=== PATIENT | male | born 1970 | race Caucasian/White ===

== ENCOUNTER 2018-04-16 00:45 | Inpatient (IN) | payer OTHER ==
[~2018-04-16] VITALS: Ht 162.6 cm; Wt 145.2 kg
--- NOTE | ~2018-04-16 | 2DMMODE ---
[facility] [address] [place] [address] 2 D/M-MODE ECHOCARDIOGRAM Name: LETA IVORY Room #: 449-I [facility] IN [facility]#: [id number] Admission: 04/16/18 Attend Phys: Leta Do MD Discharge: Date of : 74 Date of Service: 04/17/18 1646 Report #: [id number] THIS REPORT FOR: //name// APPROVED REPORT Study performed: 04/17/2018 15:39:29 EXAM: Comprehensive 2D, Doppler, and color-flow Echocardiogram Patient Location: Bedside Room #: [facility] Status: routine BSA: 2.32 HR: 61 bpm BP: 130/79 mmHg Rhythm: NSR Other Information Study Quality: Fair Indications Dyspnea Hypertension/HDD Mental retardation 2D Dimensions IVSd: 10.66 (7-11mm) LVOT Diam: 22.58 (18-24mm) LVDd: 52.84 mm PWd: 11.07 (7-11mm) Ascending Ao: 32.51 (22-36mm) LVDs: 34.05 (25-40mm) Aortic Root: 29.79 mm Volumes Left Atrial Volume (Systole) Single Plane 4CH: 56.46 mL Single Plane 2CH: 66.50 mL LA ESV Index: 31.00 mL/m2 Aortic Valve AoV Peak Jaden.: 1.76 m/s AO Peak Gr.: 12.44 mmHg LVOT Max P.46 mmHg LVOT Max V: 1.27 m/s ASHER Vmax: 2.88 cm2 Mitral Valve E/A Ratio: 3.1 MV Decel. Time: 249.30 ms [facility] [place] [address] [place] [address] 2 D/M-MODE ECHOCARDIOGRAM Name: LETA IVORY Room #: 449-I [facility]#: [id number] Admission: 04/16/18 Attend Phys: Leta Do MD Discharge: Date of : 74 Date of Service: 04/17/18 1646 Report #: [id number] E Max Jaden.: 1.47 m/s MV A Jaden.: 0.48 m/s MV PHT: 72.30 ms IVRT: 87.66 ms Pulmonary Valve PV Peak Jaden.: 1.16 m/s PV Peak Gr.: 5.37 mmHg Pulmonary Vein P Vein S: 0.66 m/s P Vein A: 0.21 m/s P Vein D: 0.52 m/s P Vein A Dur.: 106.1 msec P Vein S/D Ratio: 1.27 Tricuspid Valve TR Peak Jaden.: 2.88 m/s TR Peak Gr.: 33.19 mmHg PA Pressure: 33.00 mmHg Left Ventricle The left ventricle is normal size. There is normal left ventricular wall thickness. The left ventricular systolic function is normal. The left ventricular ejection fraction is within the normal range. LVEF is 60-65%. The left ventricular diastolic function is normal. Right Ventricle The right ventricle is normal size. The right ventricular systolic function is normal. Atria The left atrium size is normal. The right atrium size is normal. Aortic Valve The aortic valve is normal in structure. No aortic regurgitation is present. There is no aortic valvular stenosis. Mitral Valve The mitral valve is normal in structure. Trace to mild mitral regurgitation. No evidence of mitral valve stenosis. Tricuspid Valve The tricuspid valve is normal in structure. There is trace to mild tricuspid regurgitation. Estimated PAP 33 plus the right atrial pressure. There is mild pulmonary hypertension. Pulmonic Valve [address] [address] 2 D/M-MODE ECHOCARDIOGRAM Name: LETA IVORY Room #: 449-I [facility]#: [id number] Admission: 04/16/18 Attend Phys: Leta Do MD Discharge: Date of : 74 Date of Service: 04/17/18 1646 Report #: [id number] The pulmonary valve is normal in structure. There is no pulmonic valvular regurgitation. Great Vessels The aortic root is normal in size. IVC is not well visualized. Pericardium There is no pericardial effusion. <Conclusion> Technically difficult study The left ventricle is normal size. The left ventricular systolic function is normal. The left ventricular diastolic function is normal. The right ventricle is normal size. The left atrium size is normal. The aortic valve is normal in structure. Trace to mild mitral regurgitation. There is trace to mild tricuspid regurgitation. Estimated PAP 33 plus the right atrial pressure. <ELECTRONICALLY SIGNED> By: Darrell Dukes MD 04/17/181645 45 45 Darrell Dukes MD /INF
--- NOTE | ~2018-04-16 | EKG ---
[address] [place] [address] ELECTROCARDIOGRAM REPORT Name: LETA IVROY Room #: 170-8 ADM IN ..#: [id number] Admission: 04/16/18 Attend Phys: Delmer Damon Discharge: Date of : 74 Report #: [id number] THIS REPORT FOR: //name// [facility] ED Test Date: 2018-04-16 Test Time: 01:00:17 Pat Name: LETA IVORY Department: Room: 170 Gender: M Rn Home Health: Sara PINEDA : 1970 Requested By: Lupillo Chandler Order Number: [id number] MD: Murray Rodriguez Measurements Intervals [place] Rate: 87 P: 57 NE: 142 QRS: 4 QRSD: 106 T: 31 QT: 373 QTc: 449 Interpretive Statements Sinus rhythm Abnormal R-wave progression, early transition No previous ECG available for comparison Electronically Signed On 04-16-2018 7:58:40 CDT by Murray Rodriguez [email or web address] <ELECTRONICALLY SIGNED> By: Murray Rodriguez MD, [facility] 04/16/18 0758 0100 0100 Murray Rodriguez MD, FACC /EPI
[~2018-04-16 00:45] MED LIST: MUCUS ER600 MG PO
[2018-04-16 00:46] VITALS: BP 123/49
[2018-04-16 01:21] LABS: ANION GAP 8 mmol/L (7-16); BUN 31 mg/dL (7-18); CALCIUM 8.1 mg/dL (8.5-10.1); CHLORIDE 101 mmol/L (98-107); CO2 30 mmol/L (21-32); CREATININE 1.3 mg/dL (0.7-1.3); GLUCOSE 114 mg/dL (74-106); POTASSIUM 3.9 mmol/L (3.5-5.1); SODIUM 139 mmol/L (136-145)
[2018-04-16 01:30] LABS: MAGNESIUM 1.6 mg/dL (1.8-2.4); SGOT 34 U/L (15-37); SGPT 41 U/L (30-65); TOTAL BILIRUBIN 0.7 mg/dL (<0.1-1.0); TOTAL PROTEIN 6.4 g/dL (6.4-8.2); TROPONIN-I <0.06 ng/mL (<0.06)
[2018-04-16 01:54] LABS: ABSOLUTE NEUTROPHILS 10.3 thou/uL (1.4-8.2); BASOPHILS 0.2 % (0.0-2.0); HEMATOCRIT 33.4 % (42.0-52.0); HEMOGLOBIN 11.1 gm/dL (14.0-18.0); MCH 28.7 pg (26.0-34.0); MCHC 33.1 g/dL (28.0-37.0); MCV 86.7 fL (80.0-100.0); MONOCYTES 4.4 % (1.0-8.0); PLATELET COUNT 132 thou/uL (150-400); POLYS 88.4 % (36.0-66.0); RBC 3.85 mil/uL (4.50-6.00); RDW 13.9 % (10.5-14.5); WBC 11.7 thou/uL (4.0-11.0)
[2018-04-16] MEDS ORDERED: BENZTROPINE MESY2 MG PO (02:06)
[2018-04-16] MEDS ORDERED: BUMETANIDE0.25 MG/1 PO (02:06)
[2018-04-16] MEDS ORDERED: DEPAKOTE ER500 M1 PO (02:07)
[2018-04-16] MEDS ORDERED: OMEPRAZOLE 20 M20 M1 PO (02:10)
[2018-04-16] MEDS ORDERED: LOPRESSOR50 PO (02:10)
[2018-04-16] MEDS ORDERED: PROZAC20 MG PO (02:10)
[2018-04-16] MEDS ORDERED: ZANTAC 150MG T150 MG PO (02:10)
[2018-04-16] MEDS ORDERED: LIPITOR 20 MG T20 M1 PO (02:11)
[2018-04-16] MEDS ORDERED: NEURONTIN100 MG PO (02:11)
[2018-04-16] MEDS ORDERED: BUSPIRONE HCL10 MG PO (02:11)
[2018-04-16] MEDS ORDERED: KLONOPIN1 MG PO (02:11)
[2018-04-16] MEDS ORDERED: REMERON15 MG PO (02:12)
[2018-04-16] MEDS ORDERED: DEPAKOTE ER500 MG PO (02:12)
[2018-04-16] MEDS ORDERED: NASONEX17 GM NASAL (02:13)
[2018-04-16] MEDS ORDERED: TYLENOL325 MG PO (02:14)
[2018-04-16] MEDS ORDERED: FLEXERIL PO (02:14)
[2018-04-16] MEDS ORDERED: DICYCLOMINE HCL20 MG PO (02:15)
[2018-04-16] MEDS ORDERED: IBUPROFEN 800800 M1 PO (02:15)
[2018-04-16] MEDS ORDERED: LEVALBUTER1.25 MG/0. INH (02:16)
[2018-04-16] MEDS ORDERED: MILK OF MA2400 MG/10 PO (02:17)
[2018-04-16] MEDS ORDERED: ZOFRAN ODT4 MG DISSOLVE (02:17)
[2018-04-16] MEDS ORDERED: MIRALAX17 GM PO (02:18)
[2018-04-16] MEDS ORDERED: PEPTO-BISMOL262 M1 PO (02:18)
[2018-04-16] MEDS ORDERED: SILTUSSIN100 MG/5 M PO (02:19)
[2018-04-16 04:24] LABS: URINE BILIRUBIN NEGATIVE (Negative); URINE BLOOD NEGATIVE (Negative); URINE CLARITY CLEAR; URINE COLOR YELLOW; URINE GLUCOSE-RANDOM* NEGATIVE (Negative); URINE KETONES NEGATIVE (Negative); URINE LEUKOCYTES-REFLEX NEGATIVE (Negative); URINE NITRITE-REFLEX NEGATIVE (Negative); URINE PROTEIN (DIPSTICK) NEGATIVE (Negative); URINE SPECIFIC GRAVITY <= 1.005 (1.005-1.035)
[2018-04-16 08:00] VITALS: BP 131/57
[2018-04-16 11:46] VITALS: BP 121/77
[2018-04-16 17:00] VITALS: BP 131/85
[2018-04-16 21:53] VITALS: BP 140/83
[2018-04-16 22:32] VITALS: BP 125/73
[2018-04-17 03:49] VITALS: BP 160/97
[2018-04-17 06:06] LABS: CALCIUM 8.7 mg/dL (8.5-10.1); CREATININE 0.9 mg/dL (0.7-1.3); MAGNESIUM 2.3 mg/dL (1.8-2.4); POTASSIUM 4.6 mmol/L (3.5-5.1)
[2018-04-17 06:21] VITALS: BP 130/79
[2018-04-17 16:00] VITALS: BP 125/73
[2018-04-17 19:19] VITALS: BP 128/68
[2018-04-18 03:53] VITALS: BP 130/81
[2018-04-18 06:14] LABS: CALCIUM 8.7 mg/dL (8.5-10.1); POTASSIUM 4.1 mmol/L (3.5-5.1)
[2018-04-18 07:12] VITALS: BP 148/76
[2018-04-18 14:42] VITALS: BP 110/70
[2018-04-18 19:13] VITALS: BP 123/65
[2018-04-19 03:14] VITALS: BP 109/68
[2018-04-19 06:38] LABS: HEMATOCRIT 37.5 % (42.0-52.0); HEMOGLOBIN 12.1 gm/dL (14.0-18.0); MCH 28.3 pg (26.0-34.0); MCHC 32.3 g/dL (28.0-37.0); MCV 87.7 fL (80.0-100.0); RBC 4.27 mil/uL (4.50-6.00); RDW 14.6 % (10.5-14.5); WBC 7.7 thou/uL (4.0-11.0)
[2018-04-19 06:52] LABS: CALCIUM 9.4 mg/dL (8.5-10.1); MAGNESIUM 2.1 mg/dL (1.8-2.4); POTASSIUM 3.5 mmol/L (3.5-5.1)
[2018-04-19 07:11] VITALS: BP 113/61
[2018-04-19 12:30] VITALS: BP 115/51
[2018-04-19 13:05] VITALS: BP 124/61
[2018-04-19] MEDS ORDERED: CLONAZEPAM 1 MG1 M1 PO (13:20)
== END 2018-04-19 19:12 | DRG 871 ==
LOC: ER 00:45 → 4W 04:02 → EROBS 04:02 → 4W 22:10
PROVIDERS: Emergency Medicine; Hospitalist; Internal Medicine; Nurse Practitioner Acute Care
PROC: 5A09357 Assistance with Respiratory Ventilation, Less than 24 Consecutive Hours, Continuous Positive Airway Pressure (ICD-10-PCS; principal; 2018-04-17)
PROC: 5A09357 Assistance with Respiratory Ventilation, Less than 24 Consecutive Hours, Continuous Positive Airway Pressure (ICD-10-PCS; 2018-04-18)
PROC: 5A09357 Assistance with Respiratory Ventilation, Less than 24 Consecutive Hours, Continuous Positive Airway Pressure (ICD-10-PCS; 2018-04-19)
DX: A41.9 Sepsis, unspecified organism (principal); J96.20 Acute and chronic respiratory failure, unspecified whether with hypoxia or hypercapnia; I50.33 Acute on chronic diastolic (congestive) heart failure; L03.115 Cellulitis of right lower limb; J45.901 Unspecified asthma with (acute) exacerbation; I11.0 Hypertensive heart disease with heart failure; F17.220 Nicotine dependence, chewing tobacco, uncomplicated; D64.9 Anemia, unspecified; E83.42 Hypomagnesemia; J06.9 Acute upper respiratory infection, unspecified; G89.29 Other chronic pain; F32.9 Major depressive disorder, single episode, unspecified; K21.9 Gastro-esophageal reflux disease without esophagitis; K59.00 Constipation, unspecified; E78.00 Pure hypercholesterolemia, unspecified; G47.33 Obstructive sleep apnea (adult) (pediatric); F91.9 Conduct disorder, unspecified; Z28.21 Immunization not carried out because of patient refusal; Z88.0 Allergy status to penicillin; Z88.8 Allergy status to other drugs, medicaments and biological substances; Z86.711 Personal history of pulmonary embolism
CPT/HCPCS: 10045

== ENCOUNTER 2018-06-05 18:15 | Inpatient (IN) | payer OTHER ==
[~2018-06-05] VITALS: Ht 152.4 cm; Wt 141.1 kg
--- NOTE | ~2018-06-05 | EKG ---
[place] [address] [facility] [place] [place] [address] ELECTROCARDIOGRAM REPORT Name: SEAN IVORY Room #: 431-P ADM IN M.R.#: [id number] Admission: 06/05/18 Attend Phys: Solis Do MD Discharge: Date of : 74 Report #: [id number] THIS REPORT FOR: //name// [facility] ED Test Date: 2018-06-05 Test Time: 18:34:40 Pat Name: SEAN IVORY Department: Room: 431 Gender: M Medical Examiner: BILLY : 1970 Requested By: Lynn Martinez Order Number: [id number] MD: Murray Rodriguez Measurements Intervals [place] Rate: 67 P: 52 CA: 156 QRS: 3 QRSD: 102 T: 24 QT: 441 QTc: 466 Interpretive Statements Sinus rhythm Abnormal R-wave progression, early transition Baseline wander in lead(s) V6 Compared to ECG 04/16/2018 01:00:17 No significant changes Electronically Signed On 06-06-2018 8:33:08 HORSES OR MULES TEAMSTER by Murray Rodriguez [email or web address] <ELECTRONICALLY SIGNED> By: Murray Rodriguez MD, [facility] 06/06/18 0833 1834 33 Murray Rodriguez MD, [facility] /EPI
[~2018-06-05 18:15] MED LIST changes: +BENZTROPINE MESY2 MG PO; +BUMETANIDE0.25 MG/1 PO; +BUSPIRONE HCL10 MG PO; +CLONAZEPAM 1 MG1 M1 PO; +DEPAKOTE ER500 M1 PO; +DEPAKOTE ER500 MG PO; +DICYCLOMINE HCL20 MG PO; +FLEXERIL PO; +IBUPROFEN 800800 M1 PO; +KLONOPIN1 MG PO; +LEVALBUTER1.25 MG/0. INH; +LIPITOR 20 MG T20 M1 PO; +LOPRESSOR50 PO; +MILK OF MA2400 MG/10 PO; +MIRALAX17 GM PO; +NASONEX17 GM NASAL; +NEURONTIN100 MG PO; +OMEPRAZOLE 20 M20 M1 PO; +PEPTO-BISMOL262 M1 PO; +PROZAC20 MG PO; +REMERON15 MG PO; +SILTUSSIN100 MG/5 M PO; +TYLENOL325 MG PO; +ZANTAC 150MG T150 MG PO; +ZOFRAN ODT4 MG DISSOLVE
[2018-06-05 18:17] VITALS: BP 121/57
[2018-06-05 18:56] LABS: ABSOLUTE NEUTROPHILS 3.2 thou/uL (1.4-8.2); BASOPHILS 0.5 % (0.0-2.0); EOSINOPHILS 1.9 % (0.0-3.0); HEMATOCRIT 37.3 % (42.0-52.0); HEMOGLOBIN 12.5 gm/dL (14.0-18.0); LYMPHOCYTES 29.7 % (24.0-44.0); MCH 28.9 pg (26.0-34.0); MCHC 33.5 g/dL (28.0-37.0); MCV 86.3 fL (80.0-100.0); MONOCYTES 8.3 % (1.0-8.0); PLATELET COUNT 164 thou/uL (150-400); POLYS 59.6 % (36.0-66.0); RBC 4.32 mil/uL (4.50-6.00); RDW 15.6 % (10.5-14.5); WBC 5.4 thou/uL (4.0-11.0)
[2018-06-05 19:04] LABS: ANION GAP 4 mmol/L (7-16); BUN 11 mg/dL (7-18); CALCIUM 8.4 mg/dL (8.5-10.1); CHLORIDE 103 mmol/L (98-107); CO2 32 mmol/L (21-32); CREATININE 0.8 mg/dL (0.7-1.3); GLUCOSE 96 mg/dL (74-106); POTASSIUM 4.2 mmol/L (3.5-5.1); SODIUM 139 mmol/L (136-145)
[2018-06-05 19:12] LABS: ALBUMIN 3.3 g/dL (3.4-5.0); MAGNESIUM 1.8 mg/dL (1.8-2.4); SGOT 29 U/L (15-37); SGPT 28 U/L (30-65); TOTAL BILIRUBIN 0.4 mg/dL (<0.1-1.0); TOTAL PROTEIN 6.8 g/dL (6.4-8.2); TROPONIN-I <0.06 ng/mL (<0.06)
[2018-06-05 21:12] VITALS: BP 119/70
[2018-06-05 21:47] VITALS: BP 123/74
[2018-06-05 22:30] VITALS: BP 135/74
[2018-06-06 04:46] VITALS: BP 124/66
[2018-06-06 06:31] LABS: CALCIUM 8.7 mg/dL (8.5-10.1); CREATININE 0.9 mg/dL (0.7-1.3); POTASSIUM 4.2 mmol/L (3.5-5.1)
[2018-06-06 11:23] VITALS: BP 124/66
[2018-06-06 17:00] VITALS: BP 142/49
[2018-06-06 20:22] VITALS: BP 129/53
[2018-06-07 07:14] VITALS: BP 130/80
[2018-06-07] MEDS ORDERED: PREDNISONE 20 M20 MG PO (09:28)
== END 2018-06-07 18:50 | DRG 202 ==
LOC: ER 18:15 → 4E 20:52 → EROBS 20:52 → 4E 21:45
PROVIDERS: Nurse Practitioner Family; Physician Assistant
PROC: 5A09357 Assistance with Respiratory Ventilation, Less than 24 Consecutive Hours, Continuous Positive Airway Pressure (ICD-10-PCS; principal; 2018-06-06)
PROC: 5A09357 Assistance with Respiratory Ventilation, Less than 24 Consecutive Hours, Continuous Positive Airway Pressure (ICD-10-PCS; 2018-06-07)
DX: J45.902 Unspecified asthma with status asthmaticus (principal); I50.32 Chronic diastolic (congestive) heart failure; G89.29 Other chronic pain; F32.9 Major depressive disorder, single episode, unspecified; K59.00 Constipation, unspecified; E78.00 Pure hypercholesterolemia, unspecified; F17.220 Nicotine dependence, chewing tobacco, uncomplicated; G47.33 Obstructive sleep apnea (adult) (pediatric); I11.0 Hypertensive heart disease with heart failure; K21.9 Gastro-esophageal reflux disease without esophagitis; F39 Unspecified mood [affective] disorder; E78.5 Hyperlipidemia, unspecified; Z86.711 Personal history of pulmonary embolism; Z88.0 Allergy status to penicillin; Z88.8 Allergy status to other drugs, medicaments and biological substances
CPT/HCPCS: 10084

== ENCOUNTER → 2018-06-28 | Outpatient (CLI) | payer OTHER ==
[~2018-06-28] MED LIST changes: -BUMETANIDE0.25 MG/1 PO; +BUMEX2 MG PO; +PEPTO-BISM262 MG/15 PO; -PEPTO-BISMOL262 M1 PO; +PREDNISONE 20 M20 MG PO
--- NOTE | 2018-06-30 18:23 | SLE ---
[facility] [place] [address] [address] POLYSOMNOGRAPHY STUDY Name: SEAN IVORY Room #: REG DAHIANA Ordoñez.#: [id number] Admission: 06/28/18 Attend Phys: Yeison Kirby MD Discharge: Date of : 74 Report #: [id number] THIS REPORT FOR: //name// CC: Yeison Oshea MD FAM unknown DATE OF SERVICE: 06/29/2018 ATTENDING PHYSICIAN: Reddy Oshea MD The patient is 48-year-old who weighs 306 pounds with a BMI of 47.9. The patient underwent a split night study at [facility]. During the night of study, the patient spent 451 minutes in bed and slept for 430 minutes with an excellent sleep efficiency of 91%. Sleep latency was 2 minutes, which was short with a prolonged REM latency of 396 minutes. Overall, sleep architecture showed increased stage 1 and stage 2 sleep, absent N3 sleep and reduced REM sleep, which was 9% of the total sleep time. During the initial diagnostic portion of the study, the patient spent 176 minutes in bed and slept for 161 minutes. During that time, the patient had 5 obstructive apneas, no mixed or central apneas. There were 140 hypopneas. The patient's apnea-hypopnea index during the diagnostic portion was 54 per hour. The patient did not have REM sleep during the diagnostic portion. The patient's supine AHI was also 54 per hour. EKG monitoring revealed an average heart rate of 65 beats per minute with a maximum of 73 beats per minute. Occasional PVCs were observed. No sustained arrhythmias observed. No PLMS observed. Nocturnal oximetry study during the diagnostic portion revealed an average oxygen saturation of 83% with a lowest of 69%. 125 minutes were spent on oxygen saturation less than 89% and another 34 minutes with oxygen saturation of less than 79%. The patient met the criteria for CPAP initiation. The patient was started on CPAP at 9 cm water and titrated up to 20 cm water. At CPAP pressures from 13-19, the patient did very well with AHI of 0 per hour; however, no REM sleep was observed. At the final CPAP pressure of 20 cm water, the patient had supine as well as REM sleep. The patient slept for 61 minutes. The patient had 37 minutes of REM sleep. The patient's AHI was significantly improved and was reduced to 6.8 per hour. The patient's oxygen saturations improved to around 90s with a lowest desaturation of 84%. [facility] [address] [place] [address] POLYSOMNOGRAPHY STUDY Name: SEAN IVORY Room #: REG ESALydia Coombs#: [id number] Admission: 06/28/18 Attend Phys: Yeison Kirby MD Discharge: Date of : 74 Report #: [id number] IMPRESSION: 1. Severe sleep apnea-hypopnea syndrome at an AHI of 54 per hour. 2. Nocturnal hypoxia secondary to combination of obstructive sleep apnea and suspected hypoventilation. Resolved on final CPAP pressure. 3. No clinically significant periodic limb movements of sleep. RECOMMENDATIONS: 1. CPAP at 20 cm water significantly improved the patient's sleep apnea with AHI down to 6.8 per hour. I would recommend that the patient should have a download information in 30 days to make sure AHI remains less than 5 per hour and if it continues to remain high, then the patient could be switched to BiPAP at 20/16 with review of download in 30 days. 2. Weight loss is strongly advised. 3. Avoid BOAT RIDE OPERATOR depressants. 4. Caution regarding driving until symptoms of sleep apnea resolve with the above recommendations. <ELECTRONICALLY SIGNED> By: Yeison Kirby MD 06/30/18 1823 1717 1750 Yeison Kirby MD /nt
== END ==
LOC: SLEEPLAB 11:39
DX: G47.33 Obstructive sleep apnea (adult) (pediatric) (principal); R09.02 Hypoxemia

== ENCOUNTER 2018-07-02 11:00 | Inpatient (IN) | payer OTHER ==
[2018-07-02] VITALS (7 sets, daily range): BP systolic 101–143; BP diastolic 62–71
[~2018-07-02] VITALS: Ht 162.6 cm; Wt 140.4 kg
[2018-07-02 11:23] LABS: ABSOLUTE NEUTROPHILS 4.8 thou/uL (1.4-8.2); BASOPHILS 0.3 % (0.0-2.0); HEMATOCRIT 40.1 % (42.0-52.0); HEMOGLOBIN 13.3 gm/dL (14.0-18.0); LYMPHOCYTES 5.9 % (24.0-44.0); MCH 28.7 pg (26.0-34.0); MCHC 33.2 g/dL (28.0-37.0); MCV 86.5 fL (80.0-100.0); MONOCYTES 8.5 % (1.0-8.0); PLATELET COUNT 173 thou/uL (150-400); POLYS 85.3 % (36.0-66.0); RBC 4.64 mil/uL (4.50-6.00); RDW 14.7 % (10.5-14.5); WBC 5.7 thou/uL (4.0-11.0)
[2018-07-02 11:27] LABS: BE(vivo) 0.1 mmol/L (-2 to +3); HCO3 26.7 mmol/L (22.0-26.0); PCO2 51.4 mmHg (35.0-45.0); PO2 46.9 mmHg (80.0-100.0); pH 7.334 (7.360-7.450); sO2 79.5 % (92.0-98.0)
[2018-07-02 11:32] LABS: ANION GAP 7 mmol/L (7-16); BUN 18 mg/dL (7-18); CALCIUM 8.7 mg/dL (8.5-10.1); CHLORIDE 102 mmol/L (98-107); CO2 34 mmol/L (21-32); CREATININE 1.1 mg/dL (0.7-1.3); GLUCOSE 142 mg/dL (74-106); POTASSIUM 4.3 mmol/L (3.5-5.1); SODIUM 143 mmol/L (136-145)
[2018-07-02 11:40] LABS: ALBUMIN 3.6 g/dL (3.4-5.0); SGOT 18 U/L (15-37); SGPT 38 U/L (30-65); TOTAL BILIRUBIN 0.5 mg/dL (<0.1-1.0); TOTAL PROTEIN 7.2 g/dL (6.4-8.2); TROPONIN-I <0.06 ng/mL (<0.06)
[2018-07-02 12:03] LABS: URINE COLOR YELLOW
[2018-07-02 12:04] LABS: URINE CLARITY CLEAR; URINE GLUCOSE-RANDOM* NEGATIVE (Negative); URINE KETONES NEGATIVE (Negative); URINE PROTEIN (DIPSTICK) NEGATIVE (Negative)
[2018-07-02 12:07] LABS: ICTOTEST (BILI CONFIRMATORY) Negative (Negative); URINE BILIRUBIN NEGATIVE (Negative); URINE BLOOD NEGATIVE (Negative); URINE LEUKOCYTES-REFLEX NEGATIVE (Negative); URINE NITRITE-REFLEX NEGATIVE (Negative); URINE UROBILINOGEN 0.2 E.U./dl (0.2-1.0)
--- NOTE | 2018-07-02 13:47 | NUR ---
report received from rn in er. pt received to rm 358 via stretcher. pt resting quietly and comfortably in bed, bed alarm on, call light w/ in pt's hand. pt request tv on. pt on nasal bipap, wondering when he can have it off. awaiting orders from dr. ames.
--- NOTE | 2018-07-02 13:59 | EKG ---
[address] [address] ELECTROCARDIOGRAM REPORT Name: CACHORROLETA Room #: 358-P ADM IN M.R.#: [id number] Admission: 07/02/18 Attend Phys: Leta Do MD Discharge: Date of : 74 Report #: [id number] THIS REPORT FOR: //name// [facility] ED Test Date: 2018-07-02 Test Time: 11:08:54 Pat Name: LETA IVORY Department: Room: 358 Gender: M Invisible Braces Orthodontist: PATRICK : 1970 Requested By: Delmar Mccoy Order Number: [id number] MD: Ari Canas Measurements Intervals [place] Rate: 98 P: 44 [place]: 142 QRS: -3 QRSD: 98 T: 24 QT: 351 QTc: 449 Interpretive Statements Sinus rhythm Borderline T abnormalities, anterior leads Compared to ECG 06/05/2018 18:34:40 T-wave abnormality now present Electronically Signed On 07-02-2018 13:59:31 AIR TRAFFIC INSTRUCTOR by Ari Canas [email or web address] <ELECTRONICALLY SIGNED> By: Ari Canas MD 07/02/18 1359 1108 1108 Ari Canas MD /ANNMARIE
--- NOTE | 2018-07-03 02:19 | NUR ---
SLEPT ON BIPAP. AROUSABLE AND FOLLOWS SIMPLE INSTRUCTIONS. SWALLOWS PILLS AND LIQUID WITHOUT PROBLEMS. WORKING ON GOALS AND PLAN OF CARE FOR NOC. REINFORCE NEED FOR BIPAP. TOLERATING WELL. PROGRESSING SLOWLY TOWARDS DISCHARGE GOALS. CONTINUE TO ASSES CLOESLY.
[2018-07-03 03:39] VITALS: BP 134/74
[2018-07-03 04:18] LABS: CALCIUM 8.6 mg/dL (8.5-10.1); CREATININE 0.8 mg/dL (0.7-1.3)
[2018-07-03 05:50] LABS: HEMATOCRIT 38.6 % (42.0-52.0); HEMOGLOBIN 12.8 gm/dL (14.0-18.0); MCH 28.7 pg (26.0-34.0); MCHC 33.1 g/dL (28.0-37.0); MCV 86.9 fL (80.0-100.0); RBC 4.44 mil/uL (4.50-6.00); RDW 14.9 % (10.5-14.5)
--- NOTE | 2018-07-03 06:57 | NUR ---
ASSUMED CARE @ 0115 07/03/18, REPORT FROM ELBA MORRELL. PT ALERT TO SELF ONLY, PT HAS HAX OF MR. PT ON BIPAP SATS IN THE 90'S. PT IN SB WHILE AT SLEEP, SR WHEN AWAKE. PT HAD AN UNEVENTFUL NIGHT. PLAN OF CARE CONT TO MONITOR.
[2018-07-03 07:52] VITALS: BP 121/71
--- NOTE | 2018-07-03 10:29 | NUR ---
INITIAL ASSESSMENT: KVNG reviewed chart and spoke with nursing. Pt was admitted from [facility] due to pneumonia. Pt tested positive for influenza B and is in droplet isolation. Pt is on tamiflu. Pt noted to be a ware of the state in [place], [place]. KVNG placed call to [facility] PA office and spoke with Fabby Ward to notify of pt's admission and provide clinical update. Verbal consent given for pt to be treated. Plan is for pt to return to [facility] when medically stable. Pt with hx of MR. Discharge orders/summary will need to be faxed to the PA office when available. planner to fax clinical info to [facility] for review. KVNG updated pt's nurse to contact the PA office for any consents needed. KVNG is following to assist as needed with discharge planning. [facility] PUBLIC TOY CONSULTANT-- [place]: Curtis Adkins Lead Painter: Christian Perez
--- NOTE | 2018-07-03 11:22 | NUR ---
JOSHUA SENT INITIAL REFERRAL TO [facility]. PATIENT WON'T DC FOR SEVERAL DAYS, CURRENTLY IN ISOLATION FOR FLU.
[2018-07-03 16:06] VITALS: BP 134/88
--- NOTE | 2018-07-03 16:37 | NUR ---
Assumed care of Pt at 0700. Pt AOx1-2. On bipap overnight. Now on supplemental oxygen, mildly labored breathing. Diminished lung sounds. Sitting in chair throughout day. Calling out frequently for various needs. Using bedside commode. IV fluids infusing per order. Tamiflu given. Sinus on telemetry, delvin at times. Good progress toward poc goals.
[2018-07-03 19:26] VITALS: BP 147/84
--- NOTE | 2018-07-04 04:10 | NUR ---
RESTING QUIETLY TONIGHT. DENIES PAIN. CONTINUES TO CALL APPROP FOR ASSIST. PROGRESSING TOWARD DISCHARGE GOALS. CAREPLAN REVIEWED.
[2018-07-04 05:01] VITALS: BP 135/75
[2018-07-04 07:35] VITALS: BP 118/70
[2018-07-04] MEDS ORDERED: LEVAQUIN 500 M500 M2 PO (08:55)
[2018-07-04] MEDS ORDERED: OSELB75 PO (08:55)
[2018-07-04] MEDS ORDERED: FLOMAX0.4 MG PO (09:01)
--- NOTE | 2018-07-04 11:18 | HC ---
[facility] [place] [address] CONSULTATION Name: LETA IVORY Room #: 358-P [facility] IN .R.#: [id number] Admission: 07/02/18 Attend Phys: Leta Do MD Discharge: Date of : 74 Report #: [id number] THIS REPORT FOR: //name// CC: Leta Oshea TYPE OF REPORT: Pulmonary consultation. REFERRAL PHYSICIAN: Leta Do M.D. REASON FOR REFERRAL: Dyspnea and influenza A. HISTORY OF PRESENT ILLNESS: The patient is a 48-year-old white male who was brought to Emergency Room with progressive dyspnea. He was subsequently found to have influenza A. A Pulmonary consultation was requested. The patient resides in a long term. He has mental retardation along with history of asthma and past history of pulmonary embolus along with sleep apnea. Because of mental status, he is not a good historian. He appears comfortable, in no distress at present. PAST MEDICAL HISTORY: As mentioned above; history of asthma, severity unknown; sleep apnea; history of pulmonary embolus; intellectual disability; mood disorder; major depressive disorder; chronic respiratory failure; hypertension; gastroesophageal reflux disease; history of asthma; history of chronic lower extremity edema; chronic sinusitis and hypercholesterolemia. ALLERGIES: To ALPRAZOLAM and PENICILLIN, reactions not specified. HOME MEDICATIONS: List reviewed, is in the MAR. FAMILY HISTORY: Noncontributory. SOCIAL HISTORY: Resides at a long term. He apparently chews tobacco. Denies any alcohol use. PHYSICAL EXAMINATION: GENERAL: He is awake and alert, in no apparent distress. VITAL SIGNS: Temperature is 99 degrees Fahrenheit, pulse is 70, respiratory rate is 22, blood pressure 130/74 mmHg and saturation 96%. HEENT: Normocephalic and atraumatic. NECK: Supple, without any lymphadenopathy or thyromegaly. CHEST: Breath sounds are distant without any obvious rales or wheezes. CARDIOVASCULAR: Normal S1 and S2. No murmurs or gallop. There is no JVD. There is no carotid bruit. Pulses are 2+/4+ bilaterally. ABDOMEN: Soft and nontender. No organomegaly or masses felt. [address] [address] CONSULTATION Name: LETA IVORY Room #: 358-P ADM IN M.R.#: [id number] Admission: 07/02/18 Attend Phys: Leta Do MD Discharge: Date of : 74 Report #: [id number] GENITOURINARY: Deferred. RECTAL: Deferred. EXTREMITIES: Trace edema. No cyanosis or clubbing. RADIOLOGICAL DATA: Chest x-ray shows mild bibasilar infiltrates. LABORATORY DATA: Influenza swab was positive for influenza B. Electrolytes are normal. Liver enzymes unremarkable. WBC 5700. No evidence of bandemia. No evidence of eosinophilia. Arterial blood gas revealed pH 7.33, pCO2 of 51 and pO2 46 on room air. IMPRESSION: 1. Influenza B, pneumonia. 2. Khzyf-cs-smwsceq hypercapnic hypoxic respiratory failure due to above along with probable obesity hypoventilation syndrome. 3. Obstructive sleep apnea, probable obesity hypoventilation syndrome. The patient does not appear to be on a continuous positive airway pressure or bilevel positive airway pressure. 4. Asthma without obvious exacerbation. 5. Chronic diastolic heart failure, possible component of acute with lower extremity edema. 6. History of intellectual disability with a mood disorder, depression. 7. Remote history of pulmonary embolus. 8. Chronic pain. 9. Hypertension. 10. Gastroesophageal reflux disease. 11. Chronic lower extremity edema. 12. Chronic sinusitis. 13. History of allergies. RECOMMENDATIONS: Agree with current treatment plans including bronchodilators, corticosteroids. A gentle diuresis is recommended. He is currently on Tamiflu along with antibiotics. DVT and GI prophylaxis recommended. Thank you for this consultation. <ELECTRONICALLY SIGNED> By: Yusef Lowery MD 07/04/18 1118 1600 51 Yusef Lowery MD /nt
--- NOTE | 2018-07-04 15:16 | NUR ---
DISCHARGE NOTE: KVNG reviewed chart and spoke with nursing and attending physician. Pt is medically stable for discharge back to [facility] today. Awaiting call back from [facility] to determine if they are able to accept pt back today. Pt positive for Influenza B and has been on tamiflu since yesterday. KVNG left voice message for Deputy Ruba at [facility] Public Marketing Forecaster's Office. Will fax finalized discharge orders/summary when available. KVNG is following to assist as needed.
--- NOTE | 2018-07-04 15:42 | NUR ---
DISCHARGE ORDERS RECEIVED. PATIENT DISCHARGING TO [facility] UNIT. CHART COPIED PER FASHION EDITOR. ORDERS FAXED TO DESMOND MCKEON FOR [facility]. ORDERS VERIFIED RECEIVED. [facility] UNABLE TO TRANSPORT. NO MANAGER ENVIRONMENTAL SERVICES ON SITE TODAY. [facility] TO TRANSPORT PATIENT. [phone] HOURS. DIRECTOR NOTIFIED AND APPROVED. UNIT RN NOTIFIED AND CONTACT NUMBER PROVIDED FOR REPORT. DISCHARGE ORDERS AND DISCHARGE SUMMARY FAXED TO PATIENTS PUBLIC GENERAL ACCOUNTING CLERK IN [facility] AND NOTIFIED PER UNIT KVNG.
--- NOTE | 2018-07-04 15:56 | NUR ---
Assumed care of PT at 0700. Pt alert and oriented x2 in no acute distress. mild resp distress. maintains spo2 > 95% on 5L NC. IV abx infusing per order. anticipate d/c back to [facility] later this evening. will cont to monitor. good progress toward poc goals.
== END 2018-07-04 18:28 | DRG 871 ==
LOC: ER 11:00 → EROBS 11:52 → 3W 11:52 → EROBS 13:16 → 3W 13:31
PROVIDERS: Physician Assistant; ADMIT Hospitalist
PROC: 5A09357 Assistance with Respiratory Ventilation, Less than 24 Consecutive Hours, Continuous Positive Airway Pressure (ICD-10-PCS; principal; 2018-07-02)
PROC: 5A09357 Assistance with Respiratory Ventilation, Less than 24 Consecutive Hours, Continuous Positive Airway Pressure (ICD-10-PCS; 2018-07-03)
DX: A41.9 Sepsis, unspecified organism (principal); J10.08 Influenza due to other identified influenza virus with other specified pneumonia; J96.21 Acute and chronic respiratory failure with hypoxia; J12.89 Other viral pneumonia; J96.22 Acute and chronic respiratory failure with hypercapnia; I50.32 Chronic diastolic (congestive) heart failure; Z68.43 Body mass index [BMI] 50.0-59.9, adult; G89.29 Other chronic pain; F32.9 Major depressive disorder, single episode, unspecified; K21.9 Gastro-esophageal reflux disease without esophagitis; I11.0 Hypertensive heart disease with heart failure; F17.220 Nicotine dependence, chewing tobacco, uncomplicated; G47.33 Obstructive sleep apnea (adult) (pediatric); J32.9 Chronic sinusitis, unspecified; F39 Unspecified mood [affective] disorder; F09 Unspecified mental disorder due to known physiological condition; E66.01 Morbid (severe) obesity due to excess calories; K59.00 Constipation, unspecified; J45.909 Unspecified asthma, uncomplicated; E78.00 Pure hypercholesterolemia, unspecified; Z88.0 Allergy status to penicillin; Z88.8 Allergy status to other drugs, medicaments and biological substances; Z86.711 Personal history of pulmonary embolism
CPT/HCPCS: 10879

== ENCOUNTER 2019-05-30 17:31 | Inpatient (IN) | payer OTHER ==
[~2019-05-30] VITALS: Ht 165.1 cm; Wt 145.4 kg
[~2019-05-30 17:31] MED LIST changes: +FLOMAX0.4 MG PO; +LEVAQUIN 500 M500 M2 PO; +OSELB75 PO
[2019-05-30 17:32] VITALS: BP 124/74
[2019-05-30 18:03] LABS: ABSOLUTE NEUTROPHILS 9.5 thou/uL (1.4-8.2); BASOPHILS 0.3 % (0.0-2.0); EOSINOPHILS 0.2 % (0.0-3.0); HEMATOCRIT 39.6 % (42.0-52.0); HEMOGLOBIN 12.8 gm/dL (14.0-18.0); LYMPHOCYTES 8.2 % (24.0-44.0); MCH 28.2 pg (26.0-34.0); MCHC 32.4 g/dL (28.0-37.0); MCV 87.1 fL (80.0-100.0); MONOCYTES 8.4 % (1.0-8.0); PLATELET COUNT 159 thou/uL (150-400); POLYS 82.9 % (36.0-66.0); RBC 4.54 mil/uL (4.50-6.00); WBC 11.4 thou/uL (4.0-11.0)
[2019-05-30 18:08] LABS: ANION GAP 7 mmol/L (7-16); BUN 17 mg/dL (7-18); CALCIUM 9.4 mg/dL (8.5-10.1); CHLORIDE 100 mmol/L (98-107); CO2 32 mmol/L (21-32); GLUCOSE 112 mg/dL (74-106); SODIUM 139 mmol/L (136-145)
[2019-05-30 18:15] LABS: APTT 28.2 Seconds (24.5-32.8); PROTIME 10.6 Seconds (9.3-11.4)
[2019-05-30 18:18] LABS: ALBUMIN 3.3 g/dL (3.4-5.0); MAGNESIUM 1.9 mg/dL (1.8-2.4); SGOT 39 U/L (15-37); SGPT 47 U/L (30-65); TOTAL BILIRUBIN 0.5 mg/dL (<0.1-1.0); TROPONIN-I <0.06 ng/mL (<0.06)
[2019-05-30 18:21] LABS: BE(vivo) 6.4 mmol/L (-2 to +3); HCO3 32.4 mmol/L (22.0-26.0); PO2 51.2 mmHg (80.0-100.0); pH 7.412 (7.360-7.450); sO2 86.1 % (92.0-98.0)
--- NOTE | 2019-05-30 18:23 | NUR ---
CALLED GUARDIAN TWICE, UNABLE TO GET HIM ON THE PHONE
[2019-05-30 18:35] LABS: URINE BILIRUBIN NEGATIVE (Negative); URINE BLOOD NEGATIVE (Negative); URINE CLARITY CLEAR; URINE COLOR YELLOW; URINE GLUCOSE-RANDOM* NEGATIVE (Negative); URINE KETONES NEGATIVE (Negative); URINE LEUKOCYTES-REFLEX NEGATIVE (Negative); URINE NITRITE-REFLEX NEGATIVE (Negative); URINE PROTEIN (DIPSTICK) NEGATIVE (Negative); URINE SPECIFIC GRAVITY 1.015 (1.005-1.035)
[2019-05-30] MEDS ORDERED: INVEGA SUS234 MG/1.5 IM (19:03)
[2019-05-30 20:35] LABS: BE(vivo) 3.9 mmol/L (-2 to +3); HCO3 30.1 mmol/L (22.0-26.0); PCO2 51.3 mmHg (35.0-45.0); PO2 75.4 mmHg (80.0-100.0); pH 7.386 (7.360-7.450); sO2 94.8 % (92.0-98.0)
[2019-05-30 21:07] VITALS: BP 132/69
[2019-05-30 21:15] VITALS: BP 123/72
[2019-05-30 21:37] VITALS: BP 120/60
[2019-05-30] MEDS ORDERED: BUMEX2 MG PO (23:25)
[2019-05-30] MEDS ORDERED: VITAMIN D32000 UNIT PO (23:27)
[2019-05-30] MEDS ORDERED: DEPAKOTE500 MG PO (23:29)
[2019-05-30] MEDS ORDERED: FAMOTIDINE 20 M20 MG PO (23:30)
[2019-05-30] MEDS ORDERED: LYRICA25 MG PO (23:30)
[2019-05-30] MEDS ORDERED: ULTRAM 50MG TAB50 MG PO (23:31)
[2019-05-30] MEDS ORDERED: TRANSDERM-SCOP1 EACH (23:33)
--- NOTE | 2019-05-31 00:02 | NUR ---
ADMIT FROM ED. PT RESIDENT AT [facility]. PT OX3. PT HAS MODERATE MR. PT REPORTS FEELING SOA FOR OVER A WEEK. ADMIT HCAP, SEPSIS, HYPOXIA. PT REPORTS CPAP AND O2 AT FACILITY. ED REPORTED THAT HE DOES NOT WEAR O2 AT FACILITY. PT PRESENTED IN ED WITH TEMP 100.9, PROVIDED TYLENOL AND ANTIBIOTICS IN ED. O2 PER NC 4L. RT CONTACTED RE CPAP HISTORY OF USE. MED HX OBESE, SLEEP AP, HTN, HIGH CHOLESTEROL, BACK PAIN, GERD, ASTHMA, BILAT PE HX, CONSTIPATION HX. SCHIZOPHRENIA, BIPOLAR, INTERMITTENT EXPLOSIVE DISORDER, REGISTERED OFFENDER. LUNGS WITH WHEEZES, DISTENDED ABD, BLE EDEMA, PT COOPERATIVE CALM, ASKED FOR COLORING AND DRAWING MATERIALS AND PROVIDED. PT REQUESTING SNACKS FREQUENTLY. LUNGS WITH WHEEZES, CONTINENT USING URINAL. DRY FEET NOTED AND LOTION PROVIDED. PT STATES HE PLANS ON LIVING WITH HIS SISTER WHO IS A NURSE AND IS GOING TO MOVE TO FROM [place].
[2019-05-31 00:06] VITALS: BP 139/86
[2019-05-31] MEDS ORDERED: INVEGA SUS234 MG/1.5 IM ×2 (00:14→00:27)
[2019-05-31 04:31] VITALS: BP 128/72
--- NOTE | 2019-05-31 05:33 | NUR ---
PT AWAKE ALL NIGHT FELL ASLEEP THIS AM. PT WOULD NOT AWAKEN TO TAKE AM MEDS.
[2019-05-31 08:03] VITALS: BP 134/78
[2019-05-31 09:27] LABS: HEMATOCRIT 38.3 % (42.0-52.0); HEMOGLOBIN 12.5 gm/dL (14.0-18.0); MCH 28.6 pg (26.0-34.0); MCHC 32.6 g/dL (28.0-37.0); MCV 87.6 fL (80.0-100.0); RBC 4.37 mil/uL (4.50-6.00); RDW 14.7 % (10.5-14.5); WBC 8.9 thou/uL (4.0-11.0)
--- NOTE | 2019-05-31 09:43 | EKG ---
[address] [place] [address] ELECTROCARDIOGRAM REPORT Name: LETA IVORY Room #: 363-P ADM IN M.R.#: [id number] Admission: 05/30/19 Attend Phys: Leta Do MD Discharge: Date of : 74 Report #: [id number] THIS REPORT FOR: //name// [facility] ED Test Date: 2019-05-30 Test Time: 17:37:09 Pat Name: LETA IVORY Department: Room: 363 Gender: M Sweat Band Sewer: R[place] : 1970 Requested By: Lupillo Chandler Order Number: [id number] MD: Murray Rodriguez Measurements Intervals [place] Rate: 85 P: 59 MT: 142 QRS: 21 QRSD: 104 T: 41 QT: 355 QTc: 422 Interpretive Statements Sinus rhythm RSR' in V1 or V2, right VCD Compared to ECG 07/02/2018 11:08:54 No significant change was found Electronically Signed On 05-31-2019 9:42:37 [employer] by Murray Rodriguez [email or web address] <ELECTRONICALLY SIGNED> By: Murray Rodriguez MD, [facility] 05/31/19 0942 1737 173 Murray Rodriguez MD, [facility] /EPI
[2019-05-31 09:45] LABS: CREATININE 0.8 mg/dL (0.7-1.3); MAGNESIUM 2.1 mg/dL (1.8-2.4); POTASSIUM 4.3 mmol/L (3.5-5.1)
[2019-05-31 09:52] LABS: CALCIUM 9.2 mg/dL (8.5-10.1)
[2019-05-31 15:23] VITALS: BP 133/72
--- NOTE | 2019-05-31 18:41 | NUR ---
PATIENT CONT ON ABT AND NO ADVERSE REACTION NOTED. HE DENIES PAIN. NEW IV PLACED TO LEFT FA THE ONE TO RIGHT AC WAS TOO SLOW. PLEASANT WITH CARE. WILL CONT WITH PLAN OF CARE.
[2019-05-31 20:33] VITALS: BP 126/61
--- NOTE | 2019-06-01 00:17 | NUR ---
PT SITTING UP IN LOUNGE CHAIR. O2 PER NC 2L, LUNGS WITH WHEEZES UPPER AND RLL CRACKLES. NO PRODUCTIVE COUGH. IV ANTIBIOTICS. CPAP AT HS, CONTINUOUS PULSE OX. PT ASKS FOR FREQUENT SNACKS. PT ALSO PROVIDED NEW COLORING AND WORD SEARCH PER HIS REQUEST. BLE EDEMA +2, ABD DISTENDED OBESE. BLUNTED AFFECT, PLEASANT CHEERFUL, SAYING THANK YOUS TOWARDS STAFF.
[2019-06-01 03:55] LABS: HEMATOCRIT 37.3 % (42.0-52.0); HEMOGLOBIN 12.2 gm/dL (14.0-18.0); MCH 28.8 pg (26.0-34.0); MCHC 32.6 g/dL (28.0-37.0); MCV 88.4 fL (80.0-100.0); RBC 4.22 mil/uL (4.50-6.00); WBC 6.9 thou/uL (4.0-11.0)
[2019-06-01 03:56] VITALS: BP 130/72
[2019-06-01 04:19] LABS: CALCIUM 8.5 mg/dL (8.5-10.1); CREATININE 0.8 mg/dL (0.7-1.3); MAGNESIUM 1.8 mg/dL (1.8-2.4)
[2019-06-01 04:21] LABS: POTASSIUM 3.2 mmol/L (3.5-5.1)
[2019-06-01 08:00] VITALS: BP 122/72
[2019-06-01 15:14] VITALS: BP 121/75
--- NOTE | 2019-06-01 16:45 | NUR ---
PATIENT ALERT TO SELF AND SITUATION, NO COMPLAINTS OF PAIN. UP IN CHAIR THROUGHT THE SHIFT, PATIENT WALKED IN ROOM WITH STANDBY ASSISTANCE. NO DISCOMFORT NOTED. PLAN OF CARE DISCUSSED WITH MOTHER. NO SIGNS OF ACUTE DITRESS NOTED AT THIS TIME. WILL CONTINUE TO MONITOR.
[2019-06-01 19:11] VITALS: BP 122/64
[2019-06-02 04:01] VITALS: BP 112/64
[2019-06-02 06:20] LABS: HEMATOCRIT 38.8 % (42.0-52.0); HEMOGLOBIN 12.5 gm/dL (14.0-18.0); MCH 28.4 pg (26.0-34.0); MCHC 32.3 g/dL (28.0-37.0); MCV 87.9 fL (80.0-100.0); RBC 4.42 mil/uL (4.50-6.00); RDW 15.5 % (10.5-14.5); WBC 4.9 thou/uL (4.0-11.0)
--- NOTE | 2019-06-02 06:25 | NUR ---
PATIENT IS ALERT TO SELF SITUATION. PATIENT IS PENDING DISCHARGE TODAY. PATIENT IS ON 1LNC PER COMFORT. PATIENT IS ON ROOM AIR AT HOME. PATINET IS ON BIPAP HS. PATIENT DENIES PAIN. PATIENT RESTING COMFORTABLY IN BED.
[2019-06-02 06:47] LABS: CALCIUM 9.2 mg/dL (8.5-10.1); CREATININE 0.8 mg/dL (0.7-1.3)
[2019-06-02 07:49] VITALS: BP 112/67
[2019-06-02 12:05] VITALS: BP 138/84
--- NOTE | 2019-06-02 12:05 | NUR ---
INITIAL ASSESSMENT/DISCHARGE NOTE: Received consult due to pt being admitted from a nursing facility. VKNG reviewed chart and spoke with attending physician. Pt was admitted from [facility] due to HCAP/sepsis. Pt is medically stable for discharge today. Pt with hx of MR/Depressive Disorder. Pt is a ware of the state. Pt's legal guardian is through [facility]. KVNG spoke with Deputy Curtis Adkins earlier today to notify of pt's discharg back to [facility]. Final discharge orders/summary will need to be faxed to the PA office when available. Pt to be transported via [facility] back to [facility]. Awaiting final discharge orders at this time. Chart copy ordered. Nursing to call report. KVNG is available to assist should needs arise. [facility] PUBLIC ADMINISTRATORS OFFICE--
[2019-06-02] MEDS ORDERED: MUCINEX600 MG PO ×2 (13:22→13:29)
[2019-06-02] MEDS ORDERED: LEVAQUIN 750 M750 MG PO ×2 (13:22→13:29)
[2019-06-02] MEDS ORDERED: IPRAT-ALBUT 0.5-3 ML INH ×2 (13:22→13:29)
--- NOTE | 2019-06-02 14:12 | NUR ---
PT DISCHARGING TODAY TO [facility] FAXED DC ORDERS/SUMMARY TO FACILITY SPOKE WITH ALEX HE RECEIVED ORDERS. THEY ARE NOT ABLE TO PROVIDE TRANSPORTATION SO TRANSPORT ARRANGED WITH [facility] FOR 1530 TODAY. NOTIFIED PA'S OFFICE OF DC AND FAXED DC ORDERS AND RECEIVED CONFIRMATION. UNIT NOTIFIED AND CHART COPY PER , RN TO CALL REPORT TO [phone].
--- NOTE | 2019-06-02 16:06 | NUR ---
PT BEING DISCHARGED TO [facility] TODAY.
[2019-06-02 16:50] VITALS: BP 120/65
[2019-06-04 23:08] LABS: ADENOVIRUS Negative (Negative); INFLUENZA A Positive (Negative); INFLUENZA B Negative (Negative); METAPNEUMOVIRUS Negative (Negative); PARAINFLUENZA 1 Negative (Negative); PARAINFLUENZA 2 Negative (Negative); PARAINFLUENZA 3 Negative (Negative); RHINOVIRUS Negative (Negative); RSV A Negative (Negative); RSV B Negative (Negative)
== END 2019-06-02 17:15 | DRG 871 ==
LOC: ER 17:31 → 3W 20:25 → EROBS 20:25 → 3W 21:22
PROVIDERS: Emergency Medicine; Internal Medicine; Nurse Practitioner Acute Care; ADMIT Hospitalist
PROC: 5A09357 Assistance with Respiratory Ventilation, Less than 24 Consecutive Hours, Continuous Positive Airway Pressure (ICD-10-PCS; principal; 2019-05-31)
PROC: 5A09357 Assistance with Respiratory Ventilation, Less than 24 Consecutive Hours, Continuous Positive Airway Pressure (ICD-10-PCS; 2019-06-01)
PROC: 5A09357 Assistance with Respiratory Ventilation, Less than 24 Consecutive Hours, Continuous Positive Airway Pressure (ICD-10-PCS; 2019-06-02)
DX: A41.9 Sepsis, unspecified organism (principal); J18.9 Pneumonia, unspecified organism; J96.21 Acute and chronic respiratory failure with hypoxia; I50.33 Acute on chronic diastolic (congestive) heart failure; Z68.43 Body mass index [BMI] 50.0-59.9, adult; E66.2 Morbid (severe) obesity with alveolar hypoventilation; M54.5 Low back pain; G89.29 Other chronic pain; J45.909 Unspecified asthma, uncomplicated; I11.0 Hypertensive heart disease with heart failure; F79 Unspecified intellectual disabilities; K21.9 Gastro-esophageal reflux disease without esophagitis; J32.9 Chronic sinusitis, unspecified; E78.00 Pure hypercholesterolemia, unspecified; G35 Multiple sclerosis; F91.9 Conduct disorder, unspecified; R60.0 Localized edema; F31.9 Bipolar disorder, unspecified; F20.9 Schizophrenia, unspecified; Z79.2 Long term (current) use of antibiotics; Z86.711 Personal history of pulmonary embolism; Z79.1 Long term (current) use of non-steroidal anti-inflammatories (NSAID); Z79.891 Long term (current) use of opiate analgesic; Z79.01 Long term (current) use of anticoagulants; Z79.899 Other long term (current) drug therapy; Z88.0 Allergy status to penicillin; Z88.8 Allergy status to other drugs, medicaments and biological substances
CPT/HCPCS: 10879

== ENCOUNTER 2019-06-27 10:05 | Inpatient (IN) | payer OTHER ==
[~2019-06-27] VITALS: Ht 175.3 cm; Wt 138.0 kg
[2019-06-27] VITALS (9 sets, daily range): BP systolic 109–152; BP diastolic 57–88
[~2019-06-27 10:05] MED LIST changes: +DEPAKOTE500 MG PO; +FAMOTIDINE 20 M20 MG PO; +INVEGA SUS234 MG/1.5 IM; +IPRAT-ALBUT 0.5-3 ML INH; +LEVAQUIN 750 M750 MG PO; -LOPRESSOR50 PO; +LYRICA25 MG PO; +METOPROLOL SUCC25 M1 PO; +MUCINEX600 MG PO; +TRANSDERM-SCOP1 EACH; +ULTRAM 50MG TAB50 MG PO; +VITAMIN D32000 UNIT PO
[2019-06-27] MEDS ORDERED: LEVAQUIN 500 M50012 PO (10:20)
--- NOTE | 2019-06-27 10:26 | NUR ---
[facility]
[2019-06-27 10:29] LABS: ABSOLUTE NEUTROPHILS 7.3 thou/uL (1.4-8.2); BASOPHILS 0.3 % (0.0-2.0); EOSINOPHILS 0.2 % (0.0-3.0); HEMOGLOBIN 12.5 gm/dL (14.0-18.0); LYMPHOCYTES 5.6 % (24.0-44.0); MCH 29.7 pg (26.0-34.0); MCHC 33.7 g/dL (28.0-37.0); MCV 88.2 fL (80.0-100.0); MONOCYTES 9.9 % (1.0-8.0); PLATELET COUNT 142 thou/uL (150-400); RBC 4.19 mil/uL (4.50-6.00); RDW 15.2 % (10.5-14.5); WBC 8.7 thou/uL (4.0-11.0)
[2019-06-27 10:37] LABS: ANION GAP 7 mmol/L (7-16); BUN 13 mg/dL (7-18); CHLORIDE 101 mmol/L (98-107); CO2 30 mmol/L (21-32); CREATININE 0.8 mg/dL (0.7-1.3); GLUCOSE 121 mg/dL (74-106); SODIUM 138 mmol/L (136-145)
[2019-06-27 10:39] LABS: APTT 28.6 Seconds (24.5-32.8); PROTIME 10.3 Seconds (9.3-11.4)
[2019-06-27 10:42] LABS: BE(vivo) 1.4 mmol/L (-2 to +3); HCO3 26.3 mmol/L (22.0-26.0); PCO2 42.4 mmHg (35.0-45.0); PO2 108.2 mmHg (80.0-100.0)
[2019-06-27 10:47] LABS: ALBUMIN 3.4 g/dL (3.4-5.0); MAGNESIUM 1.7 mg/dL (1.8-2.4); SGOT 28 U/L (15-37); SGPT 43 U/L (30-65); TOTAL BILIRUBIN 0.8 mg/dL (<0.1-1.0); TOTAL PROTEIN 7.1 g/dL (6.4-8.2); TROPONIN-I <0.06 ng/mL (<0.06)
[2019-06-27 14:28] LABS: TSH 1.303 uIU/mL (0.358-3.740)
--- NOTE | 2019-06-27 14:30 | EKG ---
[address] [address] ELECTROCARDIOGRAM REPORT Name: LETA IVORY Room #: 204-P ADM IN M.R.#: [id number] Admission: 06/27/19 Attend Phys: Kiran Kaye MD Discharge: Date of : 74 Report #: [id number] THIS REPORT FOR: //name// [facility] ED Test Date: 2019-06-27 Test Time: 10:20:11 Pat Name: LETA IVORY Department: Room: 204 Gender: M Piece Worker: kf : 1970 Requested By: Lupillo Chandler Order Number: [id number] MD: Ari Canas Measurements Intervals [place] Rate: 94 P: 44 [place]: 143 QRS: 0 QRSD: 107 T: 32 QT: 362 QTc: 453 Interpretive Statements Sinus rhythm Abnormal R-wave progression, early transition Baseline wander in lead(s) I,II,aVR,V3,V5,V6 Compared to ECG 05/30/2019 17:37:09 No significant changes Electronically Signed On 06-27-2019 14:30:13 DEVELOPMENT TEAM LEAD by Ari Canas [email or web address] <ELECTRONICALLY SIGNED> By: Ari Canas MD 06/27/19 1430 1020 1020 Ari Canas MD /EPI
[2019-06-27 16:50] LABS: BE(vivo) 1.5 mmol/L (-2 to +3); HCO3 29.8 mmol/L (22.0-26.0); PO2 69.3 mmHg (80.0-100.0); pH 7.279 (7.360-7.450); sO2 91.2 % (92.0-98.0)
--- NOTE | 2019-06-27 18:48 | NUR ---
pt came from ED, alert and oriented x2-3, assessed, call light in lap, pt demonstrated use. sitting up in bed, swallow eval done, nectar thick recommended. pt said,"I'm hungry." ate yogurt and sugar free pudding by himself, no signs or symptoms of aspiration, door left open to visualize pt. about 1630 pt's breathing appeared more labored, RT ran ABGs and put him on bipap. md brown, CHAIN MAKER HAND up to see pt around 1710, said was noticably different from earlier in ER, ordered meds and transfer to ICU, pt arousable and oriented to self, report called to Edna in ICU, pt transferred about 1830.
[2019-06-27 19:28] LABS: BE(vivo) 5.7 mmol/L (-2 to +3); HCO3 32.4 mmol/L (22.0-26.0); PCO2 56.4 mmHg (35.0-45.0); PO2 70.2 mmHg (80.0-100.0); pH 7.377 (7.360-7.450); sO2 93.4 % (92.0-98.0)
[2019-06-28] VITALS (24 sets, daily range): BP systolic 114–151; BP diastolic 52–82
[2019-06-28 05:52] LABS: CREATININE 0.6 mg/dL (0.7-1.3)
[2019-06-28 05:55] LABS: POTASSIUM 5.2 mmol/L (3.5-5.1)
--- NOTE | 2019-06-28 09:30 | NUR ---
DUE TO PATIENT BEING TRANSFERRED BACK TO ICU FROM CCU AND MEDICAL STATUS CHANGE, OT WILL NEED NEW EVALUATION ORDERS.
--- NOTE | 2019-06-28 10:14 | NUR ---
VASCULAR ACCESS CONSULTED FOR PICC LINE. PT UNABLE TO LAY FLAT. PT'S LABS,MESS,HISTORY,ORDER AND CONSENT REVIEWED. PERLA CEPHALIC WAS WIDELY PATENT WITH USG. 4FR DL POWER PICC TRIMMED TO 45CM INSERTED TO 0CM WITH BRISK BR. STAT CXR ORDERED. PT TOLERATED WELL.
--- NOTE | 2019-06-28 10:37 | NUR ---
CXR CONFIRMED PICC AT [facility], RELEASED FOR IMMEDIATE USE PER PROTOCOL.
--- NOTE | 2019-06-28 11:07 | NUR ---
ASSUMED CARE @ 0700 06/29/19, PT ASSESSMENTS AND VSS COMPLETE PER ICU PROTOCOL. MOTHER OF PT BRITTANY MCGHEE, CALLS TO CHECK ON PT STATUS, PT NEEDING A PICC AND SO I ASKED HER IF SHE HAS RIGHTS TO MAKE DECISIONS ON PT, SHE TELLS ME YES BUT SOUNDS UNSURE AND SO I CALLED [facility] MATERIALS INTERN TO VERIFY, I WAS TRANSFERRED TO THE DEPUTY UNATTENDED GROUND SENSOR SPECIALIST (BRITTNEY MCDANIEL) SHE TELLS ME THAT [facility] MATERIALS INTERN ARE THE ONLY PERSONNELS WHO MAKE DECISIONS ON THIS PT AND SO I GOT CONSENT FOR PICC FROM THE DEPUTY UNATTENDED GROUND SENSOR SPECIALIST, SON MORRELL VERIFIED WITH ME. PICC PLACED IN THE R UPPER ARM, NO COMPLICATIONS NOTED.
--- NOTE | 2019-06-28 16:27 | NUR ---
PT ORDER RECEIVED. UPON CHART REVIEW, Pt TRANSFERRED TO ICU. WILL AWAIT NEW PT ORDERS PRIOR TO INITIATING PT EVAULATION DUE TO Pt CHANGE IN MEDICAL STATUS.
[2019-06-29] VITALS (23 sets, daily range): BP systolic 120–160; BP diastolic 62–79
[2019-06-29 05:33] LABS: ABSOLUTE NEUTROPHILS 5.2 thou/uL (1.4-8.2); BASOPHILS 0.3 % (0.0-2.0); HEMATOCRIT 35.9 % (42.0-52.0); HEMOGLOBIN 11.6 gm/dL (14.0-18.0); LYMPHOCYTES 7.7 % (24.0-44.0); MCH 28.5 pg (26.0-34.0); MCHC 32.2 g/dL (28.0-37.0); MCV 88.3 fL (80.0-100.0); MONOCYTES 8.9 % (1.0-8.0); PLATELET COUNT 139 thou/uL (150-400); POLYS 83.1 % (36.0-66.0); RBC 4.07 mil/uL (4.50-6.00); RDW 14.5 % (10.5-14.5); WBC 6.3 thou/uL (4.0-11.0)
[2019-06-29 05:34] LABS: PCO2 52.7 mmHg (35.0-45.0); PO2 95.1 mmHg (80.0-100.0); pH 7.414 (7.360-7.450); sO2 97.2 % (92.0-98.0)
[2019-06-29 05:50] LABS: ALBUMIN 2.8 g/dL (3.4-5.0); CALCIUM 8.8 mg/dL (8.5-10.1); CREATININE 0.7 mg/dL (0.7-1.3); POTASSIUM 4.6 mmol/L (3.5-5.1); TOTAL BILIRUBIN 0.3 mg/dL (<0.1-1.0); TOTAL PROTEIN 6.4 g/dL (6.4-8.2)
--- NOTE | 2019-06-29 09:02 | NUR ---
ASSUMED CARE @ 0700 06/29/19, PT ASSESSMENTS AND VSS COMPLETE PER ICU PROTOCOL. @ 0821 PT HR 38, PT IN DEEP SLEEP, PT STIMULATED HR UP IN THE 50'S. DR MENDES INFORMED, NO NEW ORDERS AT THIS TIME.
[2019-06-30] VITALS (15 sets, daily range): BP systolic 126–152; BP diastolic 58–89
--- NOTE | 2019-06-30 08:50 | 2DMMODE ---
[facility] [address] [place] [address] 2 D/M-MODE ECHOCARDIOGRAM Name: LETA IVORY Room #: 237-P ADM IN M.R.#: [id number] Admission: 06/27/19 Attend Phys: Ofelia Mcintosh Discharge: Date of : 74 Report #: [id number] THIS REPORT FOR: //name// APPROVED REPORT Study performed: 06/28/2019 08:44:10 EXAM: Comprehensive 2D, Doppler, and color-flow Echocardiogram Patient Location: Bedside Room #: [facility] Status: on-call BSA: 2.58 HR: 65 bpm BP: 140/81 mmHg Rhythm: NSR Other Information Study Quality: Adequate Technically limited study due to patient on ventilator. Risk Factors: Cardiac Risk Factors: HTN, Hyperlipidemia, DM Indications COPD Dyspnea CAD Hypertension/HDD 2D Dimensions IVSd: 13.28 (7-11mm) LVOT Diam: 22.00 (18-24mm) LVDd: 49.31 mm PWd: 12.80 (7-11mm) Ascending Ao: 32.61 (22-36mm) LVDs: 32.05 (25-40mm) Aortic Root: 32.64 mm LV Single Plane 4CH: 56.00 % LV Single Plane 2CH: 61.54 % Biplane EF: 55.4 % Volumes Left Atrial Volume (Systole) Single Plane 4CH: 57.42 mL Single Plane 2CH: 67.18 mL LA ESV Index: 26.00 mL/m2 [facility] [address] [address] 2 D/M-MODE ECHOCARDIOGRAM Name: LETA IVROY Room #: 237-P [facility] IN .R.#: [id number] Admission: 06/27/19 Attend Phys: Ofelia Mcintosh Discharge: Date of : 74 Report #: [id number] Aortic Valve AoV Peak Jaden.: 1.55 m/s AO Peak Gr.: 9.62 mmHg LVOT Max P.72 mmHg LVOT Max V: 1.09 m/s ASHER Vmax: 2.68 cm2 Mitral Valve E/A Ratio: 2.4 MV Decel. Time: 220.02 ms MV E Max Jaden.: 1.39 m/s MV A Jaden.: 0.59 m/s MV PHT: 63.81 ms IVRT: 65.74 ms TDI E/Lateral E': 15.44 E/Medial E': 17.38 Medial E' Jaden.: 0.08 m/s Lateral E' Jaden.: 0.09 m/s Pulmonary Vein P Vein S: 0.93 m/s P Vein A: 0.25 m/s P Vein D: 0.97 m/s P Vein A Dur.: 141.9 msec P Vein S/D Ratio: 0.96 Tricuspid Valve TR Peak Jaden.: 2.96 m/s TR Peak Gr.: 35.13 mmHg Left Ventricle Left ventricle is at the upper limits of normal. There is normal LV segmental wall motion. Mild concentric left ventricular hypertrophy. Left ventricular systolic function is normal. The left ventricular ejection fraction is within the normal range. LVEF is 55-60%. The left ventricular diastolic function is normal. Right Ventricle The right ventricle is normal size. The right ventricular systolic function is normal. Atria The left atrium size is normal. Right atrium is dilated. Aortic Valve The aortic valve is normal in structure. No aortic regurgitation is present. There is no aortic valvular stenosis. [facility] [address] [place] [address] 2 D/M-MODE ECHOCARDIOGRAM Name: LETA IVORY Room #: 237-P [facility] IN ..#: [id number] Admission: 06/27/19 Attend Phys: Ofelia Mcintosh Discharge: Date of : 74 Report #: [id number] Mitral Valve The mitral valve is normal in structure. Trace to mild mitral regurgitation. No evidence of mitral valve stenosis. Tricuspid Valve The tricuspid valve is normal in structure. Moderate tricuspid regurgitation. Pulmonary artery pressure of 40-45 mmHg. Pulmonic Valve The pulmonary valve is normal in structure. Trace pulmonic regurgitation. Great Vessels The aortic root is normal in size. The ascending aorta is normal in size. IVC is not well visualized. Patient is on ventilator. Pericardium There is no pericardial effusion. <Conclusion> Left ventricular systolic function is normal. There is normal LV segmental wall motion. LVEF is 55-60%. The aortic valve is normal in structure. No aortic regurgitation or stenosis The mitral valve is normal in structure. Trace to mild mitral regurgitation. Moderate tricuspid regurgitation. Pulmonary artery pressure of 40-45 mmHg. There is no pericardial effusion. <ELECTRONICALLY SIGNED> By: Murray Rodriguez MD, FACC 06/30/1947 8 Murray Rodriguez MD, FACC /INF
--- NOTE | 2019-06-30 09:29 | NUR ---
Assess due to high BMI of 49.5=extreme class obesity. Admit from LTC with acute on chronic respiratory failure. Was recently here for pneumonia. Hx schizophrenia, bipolar, CHF, COPD and dysphagia. Has been held NPO over weekend. ICU rounds this am-goal is for ST eval and advance diet. Wts variable past year and upwards of ~35 lb. On lasix. Low nutrition risk at this time
--- NOTE | 2019-06-30 16:08 | NUR ---
PT ADMITTED RELATED TO SEPSIS, CAP, HYPOXIA. CM REVIEWED CHART AND SPOKE WITH CARE TEAM. CM MET WITH PT AT BEDSIDE THIS DAY. CM ROLE INTRODUCED. PT HAS GUARDIAN JAZMYN SAUL AT [facility]S OFFICE. CM CALLED AND SPOKE WITH. HIM, CM PROVIDED ADMITTING DIAGNOSIS. CLINICAL UPDATE TO BE FAXED TO HIS ATTENTION AT . HE CONFIRMED THAT PT RESIDES IN LTC AT [facility]. PT HAS A FWW, CPAP, AND NEBULIZER FOR USE AT THE FACILITY. CM TO ASK DC ELECTRIC MOTOR MECHANIC TP FAX CLINICAL UPDATE TO [facility] WELL. JAZMYN INDICATED THAT THEY ANICIPATE PT RETURNING TO [facility] ONE MEDICALLY STABLE. CM TO FOLLOW INDICATED WITH DC PLANNING.
--- NOTE | 2019-06-30 16:14 | NUR ---
PT REMAINS ON 5L NC TO MAINTAIN SATS. STATES HE WEARS BETWEEN 1-2 L NC AT HOME. VSS. SINUS RHYTHM ON THE MONITOR. SPEECH EVAL DONE THIS AM. DIET PER SPEECH. IV ABX. IV LASIX GIVEN WITH REMARKABLE URINE OUTPUT. CHANGED ACCUCHECK TO ACHS. BM X2. SAT UP IN CHAIR THROUGH OUT THE DAY. WORKED WITH PT/OT. UP WITH MINIMAL ASSIST. PROGRESSING TOWARDS GOALS. WILL TRANSFER OUT OF ICU TO 3W.
--- NOTE | 2019-06-30 18:37 | NUR ---
pt transfered to 3w. pt alert and oriented. vITAL SIGNS WITHIN NORMAL RANGE. ASSESSMENT COMPLETED. cALL LIGHT IN REACH. PT SITTING IN CHAIR, ALARM ON. PT DENIES ANY NEEDS.
[2019-07-01 04:22] VITALS: BP 137/75
--- NOTE | 2019-07-01 04:44 | NUR ---
PATIENT IS PROGRESSING SLOWLY IN HIS CARE PLAN. VITAL SIGNS STABLE WITH PATIENT IS HAVING NO COMPLAINTS OF PAIN OR NAUSEA. PATIENT IS MOSTLY ORIENTED AND ABLE TO CALL APPROPRIATELY FOR NEEDS. BREATHING STABLE EVIDENCED BY ASSESSMENT AND READINGS FROM CONTINUOUS SATURATION MONITOR. PATIENT WAS ABLE TO TOLERATE BIPAP WELL. UP MULTIPLE TIMES WITH ASSISTANCE INCIDENT FREE. CONTINUE PLAN OF CARE.
[2019-07-01 07:52] VITALS: BP 149/81
--- NOTE | 2019-07-01 10:41 | NUR ---
PT OFF THE FLOOR FOR SWALLOW EVALUATION.
[2019-07-01 11:51] VITALS: BP 144/81
--- NOTE | 2019-07-01 15:58 | NUR ---
SW reviewed chart and spoke with nursing and attending physician. Pt was transferred to 3 from ICU and is progressing towards goals for discharge. Discharge back to [facility] is anticipated for tomorrow. category planner to fax updates to [facility]. [facility] is following to assist as needed with discharge planning.
[2019-07-01 16:13] VITALS: BP 116/62
[2019-07-01 20:41] VITALS: BP 146/89
[2019-07-02 03:55] VITALS: BP 124/72
--- NOTE | 2019-07-02 05:11 | NUR ---
ASSUMED CARE OF PT AT 1900. A&Ox3, COOPERATIVE. ST ON TELE AT START OF SHIFT, UP 130'S. DAY RN STATED HE HAD BEEN TACHYCARDIC SINCE WORKING WITH PT DURING THE DAY. MONITORED, DECREASED WHEN PT WENT TO SLEEP, CURRENTLY IN MID- 70'S. 3L O2 VIA NC DURING DAY AND IS CURRENTLY ON BiPAP, TOLERATING FINE AND SLEEPING AT THIS TIME. MEDS GIVEN DOCUMENTED. PROGRESSING TOWARDS POC GOALS.
[2019-07-02 08:00] VITALS: BP 121/73
[2019-07-02 11:50] VITALS: BP 135/84
--- NOTE | 2019-07-02 14:42 | NUR ---
SW reviewed chart and spoke with nursing and attending physician. Pt is still requiring O2 and bipap support. Discharge back to [facility] is anticipated in 1-2 days. [facility] left voice message for pt's deputy case resolution specialist through [facility], Curtis Adkins, to provide update and notify of discharge timeframe. conference planner to fax clinical updates to [facility] for review. [facility] is following to assist as needed with discharge planning.
--- NOTE | 2019-07-02 15:13 | NUR ---
Assumed care approx. 0700 this AM. Pt on bipap this AM while sleeping then put on 3LNC at breakfast. Pt titrated to 2LNC with avg. O2 sat of 91-93%. Pt tachy to 130's when standing and walking but HR comes right back down when sitting. Pt has had adequate urine output with IV lasix admistration. When walking, pt steady on feet. Right upper arm PICC line found to be longterm taken out. IV team notified. PICC line dc'd by RN. New IV to be placed by IV team today. No acute changes. Pt progressing toward plan of care goals.
[2019-07-02 16:09] LABS: ADENOVIRUS Negative (Negative); INFLUENZA A Negative (Negative); INFLUENZA B Negative (Negative); METAPNEUMOVIRUS Negative (Negative); PARAINFLUENZA 1 Negative (Negative); PARAINFLUENZA 2 Negative (Negative); PARAINFLUENZA 3 Negative (Negative); RHINOVIRUS Negative (Negative); RSV A Negative (Negative); RSV B Negative (Negative)
[2019-07-02 17:01] VITALS: BP 130/83
[2019-07-02 19:30] VITALS: BP 127/77
[2019-07-03 03:45] VITALS: BP 119/71
--- NOTE | 2019-07-03 05:15 | NUR ---
ASSUMED CARE OF PT AT 1900. A&O, COOPERATIVE. HR ELEVATED AT START OF SHIFT AND REMAINED IN 120-130s UNTIL HE WENT TO SLEEP. DAY RN STATED HR HAD INCREASED DURING PT/OT AND HAD NOT DROPPED BACK DOWN. SPOKE TO ASSOCIATE DIRECTOR DATA & ANALYTICS, HR WAS HIGH 2 NIGHTS IN A ROW, INSTRUCTED TO CONTINUE MONITORING. HR DECREASED 30 MINUTES AFTER FALLING ASLEEP TO 90s. O2 TITRATED TO 2.5L NC W/ O2 SAT'S 92-94% AND BIPAP OVER NOC. LASIX GIVEN ORDERED. INCONTINENT 3X. PT STATED HE URINATED IN BED 1x BECAUSE THIS RN TOLD HIM TO KEEP HIS ARM STRAIGHT FOR THE IV TO WORK. CLEANED PRN. CURRENTLY RESTING. NO ACUTE DISTRESS. PROGRESSING TOWARDS POC GOALS.
[2019-07-03 07:57] VITALS: BP 126/81
[2019-07-03 11:25] LABS: POTASSIUM 2.7 mmol/L (3.5-5.1)
[2019-07-03 11:59] VITALS: BP 131/77
--- NOTE | 2019-07-03 15:48 | NUR ---
SW reviewed chart and spoke with nursing and attending physician. Pt is progressing towards goals for discharge. Discharge back to [facility] is anticipated for tomorrow. SW is following to assist as needed with discharge planning.
[2019-07-03 16:24] VITALS: BP 140/97
--- NOTE | 2019-07-03 18:04 | NUR ---
pt up in chair, denies any needs. pt progressing towards care. Call light in reach and chair alarm on. will continue to monitor.
[2019-07-03 19:56] VITALS: BP 131/81
[2019-07-04 04:20] LABS: CALCIUM 9.7 mg/dL (8.5-10.1); CREATININE 0.8 mg/dL (0.7-1.3)
[2019-07-04 06:23] VITALS: BP 118/77
--- NOTE | 2019-07-04 06:58 | NUR ---
PATIENT IS ALERT AND ORIENTED. WITH MR. PATIENT IS UP TIMES ONE. PATIENT LBM WAS THE 15TH. PATIENT HAS EXTERNAL CATH. PAITENT IS NSR ON TELE. WCM. PATIENT DENIES PAIN. PATIENT IS RESTING COMFORTABLY IN BED. WCM.
[2019-07-04 08:29] VITALS: BP 118/83
[2019-07-04 12:28] VITALS: BP 131/85
[2019-07-04] MEDS ORDERED: KLOR-CON 1010 MEQ PO (12:45)
[2019-07-04] MEDS ORDERED: HYDROCHLOROTHIA25 M1 PO (12:45)
[2019-07-04] MEDS ORDERED: PREDNISONE 20 M20 M1 PO (12:45)
--- NOTE | 2019-07-04 15:41 | NUR ---
PT DISCHARGING TODAY BACK TO [facility] FAXED DC ORDERS/SUMMARY TO FACILITY RECEIVED CONFIRMATION AND SPOKE WITH ALEX (DESMOND) THEY DO NOT SET UP TRANSPORT SO TRANSPORT ARRANGED THROUGH [facility] TRIP #[id number] THEY CAN PICK PT UP ANYTIME BETWEEN [phone] TODAY. PT TO NOTIFY FAMILY OF DC AND TIME OF TRANSPORT. UNIT NOTIFIED AND CHART COPY PER US. RN TO CALL REPORT TO [phone].
--- NOTE | 2019-07-04 17:04 | NUR ---
pt is A&OX3, PT is on o2 1L/MIN/NC at most of time, pt 's vs are stable , pt denies pain and SOB with activities, pt has meeting most of care plan goals , pt is going DC to [facility] about 1800-1830pm, RN has giving report . PT understands well.
[2019-07-04 18:12] VITALS: BP 101/67
[2019-07-04 20:00] VITALS: BP 108/68
--- NOTE | 2019-07-04 23:38 | NUR ---
[facility]: TICKET WAS SET OUT AT 1500 BY CM. SET TO BE PICKED UP BETWEEN 1800 -1830 [facility] CALLED AT 2045 TO DETERMINE ETA. # [id number] COMPUTER TYPESETTER HAD NOT BEEN ASIGNED. CALLED AT [address] NOTIFICATION WAS SENT OUT. WOULD CALL IN 30MIN WITH COMPUTER TYPESETTER INFO PER ESPERANZA. NO CALL RECIVED. CALLED 2330 NO COMPUTER TYPESETTER HAS BEEN ASIGNED AND NO COMPUTER TYPESETTER WITH SPECIFIC SPECIFICATONS THAT IS REQUIRED FOR THE PATIENT COULD BE FOUND AT THIS TIME DUE TO EVERYWHERE BEING CLOSED. DISCHARGE ORDER CANCELLED. PATIENT IS TAKING NIGHT MEDICATIONS AT THIS TIME. ALEXANDRA.
--- NOTE | 2019-07-05 02:38 | NUR ---
SPOKE WITH [facility] TRANSPORT SERVICE AT 2330; THEY STATED PT HAD NOT BEEN ASSIGNED TO A APN BECAUSE NO TRANSPORT WAS AVAILABLE CAPABLE OF TAKING A BARIATRIC W/C WITH O2. THEY STATED IT WAS UNLIKELY PT WOULD BE TRANSPORTED BEFORE MORNING BECAUSE OF A LACK OF OPEN TRANSPORT SERVICES OVERNIGHT. PT INFORMED HE WOULD STAY OVERNIGHT AND BE D/C-D HOME IN AM. SPOKE WITH NIK SHAH ABOUT CANCELLING THE DISCHARGE D/T NO TRANSPORTATION. PASSED HS MEDICATIONS. SPOKE WITH JAMES AT [facility] AT 0215. SHE STATED THE PT'S INSURANCE PLAN DIDN'T COVER OXYGEN DURING TRANSPORT, BUT THAT HE COULD BE TRANSPORTED BY CART [facility]IA [facility]. CRM TECHNICAL LEAD NOTIFIED, ADVISED TO CALL CASE MANAGEMENT FIRST THING IN THE AM TO VERIFY PT'S INSURANCE COVERAGE FOR TRANSPORT VIA [facility]. MEANWHILE, [facility] WILL CONTINUE TO TRY TO FIND TRANSPORT SERVICE FOR PT, WITH AN ATTEMPTED WAVE GUIDE ASSEMBLER TIME SCHEDULED FOR 0900; THEY WILL NOT NOTIFIY [facility] UNTIL VERIFIED BY HOSPITAL STAFF.
[2019-07-05 04:00] VITALS: BP 116/65
--- NOTE | 2019-07-05 05:10 | NUR ---
PT WAS TO DC ON THE EVENING OF 07/04. ISSUES WITH TRANSPORTATION STATING THEY CANNOT TAKE PT BEING ON 0XYGEN AND HIS INSURANCE NOT COVERING THE TRANSPORTATION FEE. THEY STATE HIS INSURANCE WILL ONLY COVER OXYGEN VIA TRANSPORT FROM [facility]. MANAGER RESPIRATORY CARE SW/CM WILL BE CALLED IN THE MORNING. I ASSUMED CARE FOR PT AT 0400. PT IS CURRENTLY RESTING IN CHAIR AND WITH BIPAP ON. HOURLY ROUNDING.
[2019-07-05 07:22] VITALS: BP 119/73
--- NOTE | 2019-07-05 10:26 | NUR ---
PATIENT TRANSPORTATION ARRANGED VIA [facility] [facility] [phone] HOURS. UNIT RN NOTIFIED AND WILL NOTIFY [facility].
--- NOTE | 2019-07-05 11:13 | NUR ---
DISCHARGE NOTE: SW reviewed chart and spoke with nursing. Pt did not discharge yesterday as anticipated. [facility] was unable to provide bariatric w/c with O2. Discharge cancelled. capacity planner coordinated pt's return to [facility] today. SW left voice message for [facility] Office to notify of pt's discharge. No additional SW needs identified at this time, but is available to assist should needs arise.
== END 2019-07-05 12:39 | DRG 177 ==
LOC: ER 10:05 → EROBS 11:15 → 2N 11:15 → ICU 11:15 → 2N 13:38 → ICU 18:43 → 3W 06-30 17:17
PROVIDERS: Emergency Medicine; Nurse Practitioner; Pediatrics; ADMIT Hospitalist
PROC: 02HV33Z Insertion of Infusion Device into Superior Vena Cava, Percutaneous Approach (ICD-10-PCS; principal; 2019-06-28)
PROC: B548ZZA Ultrasonography of Superior Vena Cava, Guidance (ICD-10-PCS; principal; 2019-06-28)
PROC: 5A09357 Assistance with Respiratory Ventilation, Less than 24 Consecutive Hours, Continuous Positive Airway Pressure (ICD-10-PCS; 2019-06-30)
PROC: 5A09357 Assistance with Respiratory Ventilation, Less than 24 Consecutive Hours, Continuous Positive Airway Pressure (ICD-10-PCS; 2019-07-02)
PROC: 5A09357 Assistance with Respiratory Ventilation, Less than 24 Consecutive Hours, Continuous Positive Airway Pressure (ICD-10-PCS; 2019-07-03)
PROC: 5A09357 Assistance with Respiratory Ventilation, Less than 24 Consecutive Hours, Continuous Positive Airway Pressure (ICD-10-PCS; 2019-07-04)
PROC: 5A09357 Assistance with Respiratory Ventilation, Less than 24 Consecutive Hours, Continuous Positive Airway Pressure (ICD-10-PCS; 2019-07-05)
DX: J69.0 Pneumonitis due to inhalation of food and vomit (principal); J96.21 Acute and chronic respiratory failure with hypoxia; J96.22 Acute and chronic respiratory failure with hypercapnia; E87.1 Hypo-osmolality and hyponatremia; J44.9 Chronic obstructive pulmonary disease, unspecified; I10 Essential (primary) hypertension; G89.29 Other chronic pain; E78.5 Hyperlipidemia, unspecified; F32.9 Major depressive disorder, single episode, unspecified; K21.9 Gastro-esophageal reflux disease without esophagitis; K59.00 Constipation, unspecified; E78.00 Pure hypercholesterolemia, unspecified; I34.0 Nonrheumatic mitral (valve) insufficiency; F17.220 Nicotine dependence, chewing tobacco, uncomplicated; G47.33 Obstructive sleep apnea (adult) (pediatric); D64.9 Anemia, unspecified; E87.5 Hyperkalemia; R73.9 Hyperglycemia, unspecified; F91.9 Conduct disorder, unspecified; R00.1 Bradycardia, unspecified; J06.9 Acute upper respiratory infection, unspecified; R00.0 Tachycardia, unspecified; Z86.711 Personal history of pulmonary embolism; Z88.0 Allergy status to penicillin; Z88.8 Allergy status to other drugs, medicaments and biological substances
CPT/HCPCS: 10078; 10779; 10879; 27000

== ENCOUNTER 2020-01-15 01:51 | Inpatient (IN) | payer OTHER ==
[~2020-01-15] VITALS: Ht 170.2 cm; Wt 150.7 kg
[2020-01-15] VITALS (7 sets, daily range): BP systolic 98–143; BP diastolic 49–75
[~2020-01-15 01:51] MED LIST changes: +HYDROCHLOROTHIA25 M1 PO; +KLOR-CON 1010 MEQ PO; +LEVAQUIN 500 M50012 PO; +PREDNISONE 20 M20 M1 PO
[2020-01-15 02:44] LABS: BE(vivo) 6.8 mmol/L (-2 to +3); HCO3 33.7 mmol/L (22.0-26.0); PCO2 58.5 mmHg (35.0-45.0); PO2 72.3 mmHg (80.0-100.0); pH 7.378 (7.360-7.450); sO2 93.9 % (92.0-98.0)
[2020-01-15 02:53] LABS: HEMATOCRIT 36.4 % (42.0-52.0); HEMOGLOBIN 11.9 gm/dL (14.0-18.0); MCH 28.4 pg (26.0-34.0); MCHC 32.7 g/dL (28.0-37.0); MCV 86.8 fL (80.0-100.0); PLATELET COUNT 168 thou/uL (150-400); RBC 4.19 mil/uL (4.50-6.00); RDW 15.5 % (10.5-14.5); WBC 8.7 thou/uL (4.0-11.0)
[2020-01-15 03:00] LABS: CALCIUM 8.2 mg/dL (8.5-10.1); CREATININE 0.8 mg/dL (0.7-1.3); POTASSIUM 3.6 mmol/L (3.5-5.1)
[2020-01-15] MEDS ORDERED: INVEGA INJECTION (03:12)
[2020-01-15] MEDS ORDERED: TRIPLE ANTIBIO1 EAC1 TOP (03:13)
[2020-01-15] MEDS ORDERED: SEROQUEL 25 MG25 MG PO (03:20)
[2020-01-15] MEDS ORDERED: HYDROCHLOROTHIA25 M2 PO (03:21)
[2020-01-15] MEDS ORDERED: SINGULAIR 10 MG10 M1 PO (03:23)
[2020-01-15] MEDS ORDERED: FLUOXETINE PO (03:25)
[2020-01-15 04:30] LABS: BE(vivo) 6.9 mmol/L (-2 to +3); HCO3 33.7 mmol/L (22.0-26.0); PO2 130.6 mmHg (80.0-100.0); pH 7.382 (7.360-7.450); sO2 98.5 % (92.0-98.0)
[2020-01-15 04:56] LABS: ABSOLUTE NEUTROPHILS 6.3 thou/uL (1.4-8.2)
[2020-01-15 04:57] LABS: LARGE PLATELETS FEW; PLATELET ESTIMATE NORMAL
[2020-01-15 17:53] LABS: BE(vivo) 1.8 mmol/L (-2 to +3); HCO3 26.1 mmol/L (22.0-26.0); PCO2 39.8 mmHg (35.0-45.0); PO2 83.8 mmHg (80.0-100.0); pH 7.435 (7.360-7.450); sO2 96.6 % (92.0-98.0)
[2020-01-16 00:05] VITALS: BP 107/57
[2020-01-16 03:33] VITALS: BP 149/73
[2020-01-16 05:19] LABS: ABSOLUTE NEUTROPHILS 8.7 thou/uL (1.4-8.2); BASOPHILS 0.1 % (0.0-2.0); HEMATOCRIT 39.4 % (42.0-52.0); LYMPHOCYTES 5.4 % (24.0-44.0); MCHC 32.9 g/dL (28.0-37.0); MONOCYTES 6.7 % (1.0-8.0); PLATELET COUNT 188 thou/uL (150-400); POLYS 87.8 % (36.0-66.0); RBC 4.48 mil/uL (4.50-6.00); RDW 15.1 % (10.5-14.5); WBC 9.9 thou/uL (4.0-11.0)
[2020-01-16 06:44] LABS: CALCIUM 8.6 mg/dL (8.5-10.1); CREATININE 0.7 mg/dL (0.7-1.3); POTASSIUM 4.1 mmol/L (3.5-5.1)
[2020-01-16 07:40] VITALS: BP 129/58
[2020-01-16 11:20] VITALS: BP 132/60
[2020-01-16 15:20] VITALS: BP 153/63
--- NOTE | 2020-01-16 16:25 | EKG ---
[facility] [place] [address] [address] ELECTROCARDIOGRAM REPORT Name: LETA IVORY Room #: 202-P ADM IN M.R.#: [id number] Admission: 01/15/20 Attend Phys: Rhonda Kirby MD Discharge: Date of : 74 Report #: [id number] THIS REPORT FOR: cc: [facility] - Clinic physician unknown [facility] - Clinic physician unknown Murray Rodriguez MD [facility] ~ THIS REPORT FOR: //name// [facility] Test Date: 2020-01-16 Test Time: 14:27:03 Pat Name: LETA IVORY Department: Room: 202 P Gender: M Apartment Leasing Manager: Ofelia PETERSON : 1970 Requested By: Samira Parada Order Number: [id number] MD: Murray Rodriguez Measurements Intervals [place] Rate: 65 P: 48 FL: 139 QRS: 14 QRSD: 108 T: 43 QT: 381 QTc: 397 Interpretive Statements Sinus rhythm RSR' in V1 or V2, right VCD Compared to ECG 06/27/2019 10:20:11 No significant change was found Electronically Signed On 01-16-2020 16:25:01 CDT by Murray Rodriguez [email or web address] <ELECTRONICALLY SIGNED> By: Murray Rodriguez MD, [facility] 01/16/20 1625 1427 1427 Murray Rodriguez MD, [facility] /EPI
== END 2020-01-16 19:55 | DRG 189 ==
LOC: ER 01:51 → 2N 05:29 → EROBS 05:29 → 3W 05:29 → 2N 21:17
PROVIDERS: Emergency Medicine; Nurse Practitioner; Pediatrics; ADMIT Internal Medicine; ATTEND Internal Medicine
PROC: 5A09357 Assistance with Respiratory Ventilation, Less than 24 Consecutive Hours, Continuous Positive Airway Pressure (ICD-10-PCS; principal; 2020-01-15)
DX: J96.21 Acute and chronic respiratory failure with hypoxia (principal); J45.901 Unspecified asthma with (acute) exacerbation; I50.32 Chronic diastolic (congestive) heart failure; J96.22 Acute and chronic respiratory failure with hypercapnia; G89.29 Other chronic pain; F32.9 Major depressive disorder, single episode, unspecified; K21.9 Gastro-esophageal reflux disease without esophagitis; K59.00 Constipation, unspecified; E78.00 Pure hypercholesterolemia, unspecified; F17.220 Nicotine dependence, chewing tobacco, uncomplicated; E78.5 Hyperlipidemia, unspecified; J44.9 Chronic obstructive pulmonary disease, unspecified; I34.0 Nonrheumatic mitral (valve) insufficiency; I11.0 Hypertensive heart disease with heart failure; F91.9 Conduct disorder, unspecified; G47.33 Obstructive sleep apnea (adult) (pediatric); D64.9 Anemia, unspecified; Z20.828 Contact with and (suspected) exposure to other viral communicable diseases; Z86.711 Personal history of pulmonary embolism; Z88.0 Allergy status to penicillin; Z88.8 Allergy status to other drugs, medicaments and biological substances; Z79.899 Other long term (current) drug therapy
CPT/HCPCS: 10081

== ENCOUNTER 2020-01-19 03:22 | Inpatient (IN) | payer OTHER ==
[~2020-01-19] VITALS: Ht 177.8 cm; Wt 150.2 kg
[~2020-01-19 03:22] MED LIST changes: +FLUOXETINE PO; +HYDROCHLOROTHIA25 M2 PO; +INVEGA INJECTION; +SEROQUEL 25 MG25 MG PO; +SINGULAIR 10 MG10 M1 PO; +TRIPLE ANTIBIO1 EAC1 TOP
[2020-01-19 03:24] VITALS: BP 132/82
[2020-01-19 04:34] LABS: ANION GAP 2 mmol/L (7-16); BUN 18 mg/dL (7-18); CALCIUM 8.3 mg/dL (8.5-10.1); CHLORIDE 102 mmol/L (98-107); CO2 33 mmol/L (21-32); CREATININE 0.8 mg/dL (0.7-1.3); GLUCOSE 92 mg/dL (74-106); POTASSIUM 4.6 mmol/L (3.5-5.1)
[2020-01-19 04:39] LABS: SODIUM 137 mmol/L (136-145)
[2020-01-19 04:44] LABS: ALBUMIN 3.1 g/dL (3.4-5.0); SGOT 42 U/L (15-37); SGPT 35 U/L (30-65); TOTAL BILIRUBIN 0.4 mg/dL (0.2-1.0); TOTAL PROTEIN 6.6 g/dL (6.4-8.2); TROPONIN-I <0.06 ng/mL (<0.06)
[2020-01-19 05:08] LABS: HEMATOCRIT 36.3 % (42.0-52.0); HEMOGLOBIN 11.9 gm/dL (14.0-18.0); MCH 28.8 pg (26.0-34.0); MCHC 32.9 g/dL (28.0-37.0); MCV 87.7 fL (80.0-100.0); PLATELET COUNT 183 thou/uL (150-400); RBC 4.14 mil/uL (4.50-6.00); RDW 15.5 % (10.5-14.5); WBC 7.2 thou/uL (4.0-11.0)
--- NOTE | 2020-01-19 05:20 | NUR ---
CONSENT OBTAINED FROM ABE BLEVINS AT [facility]. [phone].
[2020-01-19 06:25] LABS: ABSOLUTE NEUTROPHILS 4.2 thou/uL (1.4-8.2); ATYPICAL LYMPHS 1 %; METAMYELOCYTES 2 %; MYELOCYTES 3 %
[2020-01-19 07:07] VITALS: BP 158/65
--- NOTE | 2020-01-19 08:12 | NUR ---
TALKED WITH THE D.O.N. AT [facility] AND INFROMED HIM THAT THE PT WAS BEING ADMITTED.
--- NOTE | 2020-01-19 08:19 | EKG ---
[facility] [place] [address] [address] ELECTROCARDIOGRAM REPORT Name: LETA IVORY Cherri Room #: 170-7 ADM IN M.R.#: [id number] Admission: 01/19/20 Attend Phys: Lowell Womack MD Discharge: Date of : 74 Report #: [id number] THIS REPORT FOR: cc: [facility] - Clinic physician unknown [facility] - Clinic physician unknown Ari Canas MD ~ THIS REPORT FOR: //name// [facility] ED Test Date: 2020-01-19 Test Time: 03:37:02 Pat Name: LETA IVORY Department: Room: 170 Gender: M Retail Support Manager: : 1970 Requested By: Zenon Moss Order Number: [id number] MD: Ari Canas Measurements Intervals [place] Rate: 75 P: 47 CT: 133 QRS: 10 QRSD: 101 T: 48 QT: 372 QTc: 416 Interpretive Statements Sinus rhythm RSR' in V1 or V2, right VCD or RVH Compared to ECG 01/16/2020 14:27:03 Right ventricular hypertrophy now present Electronically Signed On 01-19-2020 8:19:01 CDT by Ari Canas [email or web address] <ELECTRONICALLY SIGNED> By: Ari Canas MD 01/19/20 0819 0337 0337 Ari Canas MD /EPI
--- NOTE | 2020-01-19 15:14 | NUR ---
PER DIPAK HARRIS-SHE IS FINE WITH PT GOING TO A NON-COVID UNIT.
[2020-01-19 21:30] VITALS: BP 145/77
[2020-01-19 22:00] VITALS: BP 142/67
[2020-01-19 22:42] VITALS: BP 185/75
[2020-01-20 00:44] VITALS: BP 156/56
--- NOTE | 2020-01-20 04:30 | NUR ---
PT ARRIVED FROM THE ER THIS SHIFT. A&OX3. ORIENTED TO ROOM. ADMISSION DONE AND CHARTED. PT ON 2L OF O2. UP WITH SBA TO THE BATHROOM. EVENING MEDS GIVEN AND PT NICK IT WELL. DENIES PAIN, N/V. FALL PREC IN PLACE AND CALL LIGHT IN REACH WILL CONT TO MONITOR.
[2020-01-20 05:48] VITALS: BP 152/74
[2020-01-20 05:59] LABS: CALCIUM 8.8 mg/dL (8.5-10.1); CREATININE 0.8 mg/dL (0.7-1.3)
[2020-01-20 08:12] VITALS: BP 137/71
[2020-01-20 12:06] VITALS: BP 130/60
--- NOTE | 2020-01-20 14:20 | NUR ---
PT IS FROM [facility] FAXED CLINICAL UPDATE RECEIVED CONFIRMATION AND LEFT MSG WITH ALEX FUNES) AT FACILITY. DP TO FOLLOW.
[2020-01-20 16:04] VITALS: BP 136/86
--- NOTE | 2020-01-20 16:51 | NUR ---
ASSESSMENT DOCUMENTED, ON 2L NC, AND SOB WITH EXCERTION. SR.SB ON THE MONITOR AND DENIES ANY CP OR DISCOMFORT. VSS AND WILL COTINUE WITH POC.
[2020-01-20 20:15] VITALS: BP 147/36
[2020-01-21 05:37] VITALS: BP 137/79
[2020-01-21 06:04] LABS: HEMATOCRIT 40.2 % (42.0-52.0); HEMOGLOBIN 13.1 gm/dL (14.0-18.0); MCH 28.4 pg (26.0-34.0); MCHC 32.5 g/dL (28.0-37.0); MCV 87.2 fL (80.0-100.0); RBC 4.61 mil/uL (4.50-6.00); RDW 15.3 % (10.5-14.5); WBC 12.1 thou/uL (4.0-11.0)
[2020-01-21 06:18] LABS: CALCIUM 9.3 mg/dL (8.5-10.1); CREATININE 0.6 mg/dL (0.7-1.3); POTASSIUM 4.2 mmol/L (3.5-5.1)
--- NOTE | 2020-01-21 06:26 | NUR ---
ASSESSMENT: PT SAT IN RECLINER ALL NIGHT, COLORING IN BOOK. DENIES SOB. DIURESSING WELL PER EXTERNAL CATH CRUZ. VSS, AFEBRILE. 2 LITERS PER NC WITH COARSE/DIM IN THE BASES. SR-SB PER MONITOR. SLOW PROGRESS TOWARDS DC GOALS., WILL CONTINUE TO MONITOR.
[2020-01-21 07:30] VITALS: BP 140/78
[2020-01-21] MEDS ORDERED: PREDNISONE 10 M10 M1 PO (09:22)
[2020-01-21 09:42] VITALS: BP 140/78
--- NOTE | 2020-01-21 10:28 | NUR ---
Patient admits from [facility] with COPD exacerbation. Patient with recent dc back to facility and returned to [facility]. Patient use oxygen at facility. usu 2 liters and wears CPAP at night. Sp with DESMOND at [facility] office. Plan dc today. Consent for dc from Curtis MANZANARES at [facility] office.
--- NOTE | 2020-01-21 10:38 | NUR ---
PT DISCHARGING TO [facility] FAXED DC ORDERS/SUMMARY TO FACILITY SPOKE WITH ALISHA IN ADM SHE RECEIVED ORDERS. TRANSPORT ARRANGED WITH [facility] FOR 11OO TODAY. NOTIFIED AND FAXED DC ORDERS WITH CLINICAL UPDATE TO PA'S OFFICE RECEIVED CONFIRMATION. NOTIFIED UNIT AND CHART COPY PER US. RN TO CALL REPORT TO [phone].
--- NOTE | 2020-01-21 11:20 | NUR ---
ASSESSMENT DOCUMENTED. VSS. SR ON THE MONITOR. PT STATES NO PAIN/SOB. REPORT CALLED TO [facility]. IV AND HEART MONITOR DISCONTINUED. WILL CONTINUE TO MONITOR.
== END 2020-01-21 11:23 | DRG 189 ==
LOC: ER 03:22 → EROBS 05:04 → 2N 05:04
PROVIDERS: Emergency Medicine; Nurse Practitioner Family; ADMIT Hospitalist; ATTEND Hospitalist
DX: J96.01 Acute respiratory failure with hypoxia (principal); J44.1 Chronic obstructive pulmonary disease with (acute) exacerbation; I50.32 Chronic diastolic (congestive) heart failure; G47.33 Obstructive sleep apnea (adult) (pediatric); I11.0 Hypertensive heart disease with heart failure; E78.5 Hyperlipidemia, unspecified; R60.0 Localized edema; G89.29 Other chronic pain; F20.9 Schizophrenia, unspecified; F31.9 Bipolar disorder, unspecified; K21.9 Gastro-esophageal reflux disease without esophagitis; E78.00 Pure hypercholesterolemia, unspecified; Z20.828 Contact with and (suspected) exposure to other viral communicable diseases; Z99.81 Dependence on supplemental oxygen; Z86.711 Personal history of pulmonary embolism; Z79.899 Other long term (current) drug therapy; Z88.0 Allergy status to penicillin; Z88.8 Allergy status to other drugs, medicaments and biological substances
CPT/HCPCS: 10081